=== PATIENT | male | born 1960 | race Hispanic/Latino ===

== ENCOUNTER 2017-06-24 20:18 | Inpatient (IN) | payer OTHER ==
[~2017-06-24] VITALS: Ht 167.6 cm; Wt 76.2 kg
[~2017-06-24 20:18] MED LIST: DOXA2TAB2 PO; FLUC100T8 PO; FOLI1TAB85 PO; LISI-617 PO; TAMS-1 PO
[2017-06-24 20:56] LABS: BASOPHILS % (AUTO) 0.7 % (0.0-5.0); EOSINOPHILS % (AUTO) 2.3 % (0.0-8.0); HEMATOCRIT 29.7 % (42-54); LYMPHOCYTES % (AUTO) 24.4 % (21.0-51.0); MEAN CORPUSCULAR HEMOGLOBIN 30.5 pg (27.0-33.0); MEAN CORPUSCULAR HGB CONC 34.7 g/dL (32.0-36.0); MEAN CORPUSCULAR VOLUME 87.9 fL (79-99); MONOCYTES % (AUTO) 11.3 % (3.0-13.0); NEUTROPHILS % (AUTO) 61.3 % (40.0-77.0); PLATELET COUNT (AUTO) 272 K/uL (130-400); RED BLOOD CELL COUNT(AUTO) 3.38 MIL/uL (4.50-6.20); RED CELL DISTRIBUTION WIDTH 12.6 % (11.0-15.5); WHITE BLOOD COUNT (AUTO) 5.9 K/uL (4.8-10.8)
[2017-06-24 20:58] LABS: APPEARANCE,URINE CLOUDY (CLEAR); BILIRUBIN,URINE NEGATIVE (NEGATIVE); COLOR,URINE YELLOW (YELLOW); GLUCOSE, URINE (UA) >=1000 mg/dL (NEGATIVE); KETONES,URINE NEGATIVE (NEGATIVE); LEUKOCYTE ESTERASE ,URINE LARGE (NEGATIVE); NITRATE,URINE NEGATIVE (NEGATIVE); OCCULT BLOOD,URINE LARGE (NEGATIVE); PROTEIN,URINE 100 (NEGATIVE); UROBILINOGEN,URINE 0.2 mg/dL (0.2-1.0)
[2017-06-24 21:08] LABS: BACTERIA,URINE Rare /HPF (None Seen); WBC,URINE >100 /HPF (0-1); YEAST,URINE BUDDING Moderate /HPF (None Seen)
[2017-06-24 21:10] LABS: SQUAMOUS EPITHELIAL CELL,UR Rare /LPF (0-2)
[2017-06-24 21:17] LABS: INR 0.97 (0.85-1.15); PARTIAL THROMBOPLASTIN TIME 27.1 SEC (26.3-35.5); PROTHROMBIN TIME 10.2 SEC (9.6-11.6)
[2017-06-24 21:33] LABS: ALBUMIN 3.3 g/dL (3.5-5.0); BILIRUBIN,TOTAL 0.4 mg/dL (0.2-1.0); CREATININE 4.9 mg/dL (0.5-1.5); TOTAL PROTEIN, SERUM 8.3 g/dL (6.0-8.3)
[2017-06-24] MEDS ORDERED: MECLIZINE HCL 25 MG TABLET ONE (21:35)
[2017-06-24] MEDS ORDERED: CEFTRIAXONE SODIUM 1 GM ONE (21:35)
[2017-06-24] MEDS ORDERED: SODIUM CHLORIDE 0.9% 500ML 500 ML IV ONE (21:35)
[2017-06-24] MEDS ORDERED: SODIUM CHLORIDE 0.9% 1000ML 1,000 ML IV ONE (22:05)
[2017-06-24] MEDS ORDERED: INSULIN HUMULIN R 100 UNIT/ML 3ML ONE (22:06)
[2017-06-25 01:09] LABS: ABG BASE EXCESS -7.6 mmol/L (-2.0-3.0); ABG HCO3 15.8 mmol/L (21.0-28.0); ABG PCO2 27 mmHg (35-48)
[2017-06-25] MEDS ORDERED: HYDRALAZINE HCL 20 MG/ML VIAL IV PRN (02:30)
[2017-06-25] MEDS ORDERED: ACETAMINOPHEN 325 MG TAB PO PRN ×3 (02:30→07:15)
[2017-06-25] MEDS ORDERED: DEXTROSE 50%-WATER 50 ML DISP.SYRIN IV PRN ×2 (02:30→07:15)
[2017-06-25] MEDS ORDERED: CEFTRIAXONE 1GM/D5W 50ML 50 ML IV SCH (02:30)
[2017-06-25] MEDS ORDERED: MORPHINE SULFATE 2 MG/ML 1ML SYG IVP PRN (02:30)
[2017-06-25] MEDS ORDERED: LACTULOSE 20 GM/30 ML UDCUP PO PRN ×2 (02:30→07:15)
[2017-06-25] MEDS ORDERED: GLUCAGON 1MG KIT 1 MG ML IM PRN ×2 (02:30→07:15)
[2017-06-25] MEDS ORDERED: INSULIN HUMULIN R 100 UNIT/ML 3ML ONE (03:20)
[2017-06-25] MEDS ORDERED: SODIUM CHLORIDE 0.9% 500ML 500 ML IV ONE (03:40)
[2017-06-25 03:44] LABS: BASOPHILS % (AUTO) 0.8 % (0.0-5.0); EOSINOPHILS % (AUTO) 3.2 % (0.0-8.0); LYMPHOCYTES % (AUTO) 21.8 % (21.0-51.0); MEAN CORPUSCULAR HEMOGLOBIN 30.2 pg (27.0-33.0); MEAN CORPUSCULAR HGB CONC 34.9 g/dL (32.0-36.0); MEAN CORPUSCULAR VOLUME 86.6 fL (79-99); MONOCYTES % (AUTO) 11.2 % (3.0-13.0); PLATELET COUNT (AUTO) 244 K/uL (130-400); RED BLOOD CELL COUNT(AUTO) 3.12 MIL/uL (4.50-6.20); RED CELL DISTRIBUTION WIDTH 12.6 % (11.0-15.5); WHITE BLOOD COUNT (AUTO) 5.7 K/uL (4.8-10.8)
[2017-06-25 03:52] LABS: HEMOGLOBIN A1C 12.4 % (4.0-6.0)
[2017-06-25 04:02] LABS: CREATININE 4.3 mg/dL (0.5-1.5); POTASSIUM 3.5 mmol/L (3.5-5.1)
[2017-06-25 05:55] VITALS: BP 154/78
[2017-06-25] MEDS: INSULIN HUMULIN R 100 UNIT/ML 3ML SQ SCH ×4 (06:14→21:02)
[2017-06-25] MEDS: IPRATROPIUM/ALBUTEROL SULFATE 3 ML SOLUTION IH SCH ×4 (06:54→23:15)
[2017-06-25 07:00] VITALS: BP 139/68
[2017-06-25] MEDS ORDERED: LIDOCAINE HCL-MPF 1% 2ML VIAL IJ PRN (07:15)
[2017-06-25] MEDS ORDERED: POTASSIUM CHLORIDE 10% ELIXIR 20 MEQ/15 ML UDCUP PO PRN (07:15)
[2017-06-25] MEDS ORDERED: CLONIDINE HCL 0.1 MG TABLET PO PRN (07:15)
[2017-06-25] MEDS ORDERED: POTASSIUM CHLORIDE 20 MEQ ERTAB PO PRN (07:15)
[2017-06-25] MEDS ORDERED: ZOLPIDEM TARTRATE 5 MG TAB PO PRN (07:15)
[2017-06-25] MEDS ORDERED: INSULIN R PO SSI SQ SCH (07:30)
[2017-06-25] MEDS ORDERED: FAMOTIDINE 20MG TAB 20 MG TAB PO SCH (09:00)
[2017-06-25] MEDS: FAMOTIDINE 20MG TAB 20 MG TAB PO SCH ×2 (09:00→21:03)
[2017-06-25] MEDS: FLU VACC QS2017-18 36MOS UP/PF 60 MCG/0.5 ML ML IM NR (09:04)
[2017-06-25 10:54] VITALS: BP 137/76
[2017-06-25] MEDS ORDERED: INSULIN DETEMIR 10ML 100 UNIT/ML 10ML SQ SCH (11:15)
[2017-06-25] MEDS: SODIUM CHLORIDE 0.9% 1000ML 1,000 ML IV SCH ×2 (12:15→16:08)
[2017-06-25 15:32] VITALS: BP 137/76
[2017-06-25] MEDS: MORPHINE SULFATE 2 MG/ML 1ML SYG IVP PRN (17:35)
[2017-06-25 20:16] VITALS: BP 133/74
[2017-06-25] MEDS ORDERED: RENAL DOSE IV PRN (20:45)
[2017-06-25] MEDS: INSULIN GLARGINE 100 UNITS/ML 10 ML VIAL SQ SCH (21:01)
[2017-06-25] MEDS: CEFTRIAXONE SODIUM 1 GM IVP SCH (21:03)
[2017-06-25] MEDS ORDERED: INSULIN GLARGINE 100 UNITS/ML 10 ML VIAL SQ ONE (21:05)
[2017-06-25] MEDS ORDERED: FLUCONAZOLE 400 MG/NS 200 ML IV SCH (22:00)
[2017-06-25 23:59] VITALS: BP 140/76
[2017-06-26] MEDS: SODIUM CHLORIDE 0.9% 1000ML 1,000 ML IV SCH (03:31)
[2017-06-26 04:00] VITALS: BP 142/79
[2017-06-26 04:37] LABS: BASOPHILS % (AUTO) 0.7 % (0.0-5.0); EOSINOPHILS % (AUTO) 2.1 % (0.0-8.0); HEMATOCRIT 28.4 % (42-54); LYMPHOCYTES % (AUTO) 14.5 % (21.0-51.0); MEAN CORPUSCULAR HEMOGLOBIN 30.1 pg (27.0-33.0); MEAN CORPUSCULAR HGB CONC 35.2 g/dL (32.0-36.0); MEAN CORPUSCULAR VOLUME 85.6 fL (79-99); MONOCYTES % (AUTO) 10.1 % (3.0-13.0); NEUTROPHILS % (AUTO) 72.6 % (40.0-77.0); PLATELET COUNT (AUTO) 276 K/uL (130-400); RED BLOOD CELL COUNT(AUTO) 3.32 MIL/uL (4.50-6.20); RED CELL DISTRIBUTION WIDTH 12.4 % (11.0-15.5); WHITE BLOOD COUNT (AUTO) 7.8 K/uL (4.8-10.8)
[2017-06-26 05:07] LABS: CREATININE 3.5 mg/dL (0.5-1.5); PHOSPHORUS 3.3 mg/dL (2.5-4.9); POTASSIUM 3.5 mmol/L (3.5-5.1); THYROID STIMULATING HORMONE 0.96 uIU/mL (0.36-3.74); URIC ACID 8.2 mg/dL (2.6-7.2)
[2017-06-26] MEDS: IPRATROPIUM/ALBUTEROL SULFATE 3 ML SOLUTION IH SCH (05:42)
[2017-06-26] MEDS: FLU VACC QS2017-18 36MOS UP/PF 60 MCG/0.5 ML ML IM NR (05:54)
[2017-06-26] MEDS: INSULIN HUMULIN R 100 UNIT/ML 3ML SQ SCH ×4 (06:26→20:46)
[2017-06-26 07:00] VITALS: BP 140/73
[2017-06-26] MEDS: INSULIN GLARGINE 100 UNITS/ML 10 ML VIAL SQ SCH ×2 (08:23→21:06)
[2017-06-26] MEDS: FAMOTIDINE 20MG TAB 20 MG TAB PO SCH ×2 (08:24→21:03)
[2017-06-26] MEDS: FOLIC ACID/VITAMIN B COMP W-C 1 MG CAPSULE PO SCH (08:24)
[2017-06-26] MEDS: LINAGLIPTIN 5 MG TABLET PO SCH (08:24)
[2017-06-26] MEDS ORDERED: IPRATROPIUM/ALBUTEROL SULFATE 3 ML SOLUTION IH PRN (11:30)
[2017-06-26 11:36] VITALS: BP 148/79
[2017-06-26] MEDS ORDERED: COMPOUND IV MISC 1 EACH IVSOLN MISC PRN (12:15)
[2017-06-26] MEDS ORDERED: INSULIN HUMULIN R 100 UNIT/ML 3ML SQ ONE (12:46)
[2017-06-26] MEDS: MORPHINE SULFATE 2 MG/ML 1ML SYG IVP PRN ×2 (12:47→21:07)
[2017-06-26] MEDS: IRON SUCROSE COMPLEX 100 MG in SODIUM CHLORIDE 0.9% 50 ML IV SCH (12:48)
[2017-06-26 15:00] VITALS: BP 147/82
[2017-06-26 20:00] VITALS: BP 144/88
[2017-06-26] MEDS: CEFTRIAXONE SODIUM 1 GM IVP SCH (21:02)
[2017-06-26] MEDS: FLUCONAZOLE 200 MG/NS 100 ML 100 ML IV SCH (21:03)
[2017-06-27] VITALS: BP 133/76
[2017-06-27 04:00] VITALS: BP 149/86
[2017-06-27 05:52] LABS: BASOPHILS % (AUTO) 0.4 % (0.0-5.0); EOSINOPHILS % (AUTO) 3.2 % (0.0-8.0); HEMATOCRIT 26.6 % (42-54); LYMPHOCYTES % (AUTO) 17.4 % (21.0-51.0); MEAN CORPUSCULAR HEMOGLOBIN 30.3 pg (27.0-33.0); MEAN CORPUSCULAR HGB CONC 35.2 g/dL (32.0-36.0); MEAN CORPUSCULAR VOLUME 86.1 fL (79-99); MONOCYTES % (AUTO) 9.5 % (3.0-13.0); NEUTROPHILS % (AUTO) 69.5 % (40.0-77.0); PLATELET COUNT (AUTO) 245 K/uL (130-400); RED BLOOD CELL COUNT(AUTO) 3.08 MIL/uL (4.50-6.20); RED CELL DISTRIBUTION WIDTH 12.6 % (11.0-15.5); WHITE BLOOD COUNT (AUTO) 7.3 K/uL (4.8-10.8)
[2017-06-27 06:11] LABS: CREATININE 3.1 mg/dL (0.5-1.5)
[2017-06-27 06:14] LABS: POTASSIUM 2.8 mmol/L (3.5-5.1)
[2017-06-27] MEDS: MORPHINE SULFATE 2 MG/ML 1ML SYG IVP PRN ×2 (06:15→11:42)
[2017-06-27] MEDS: POTASSIUM CHLORIDE 20MEQ/100ML 100 ML IV PRN ×2 (07:25→11:43)
[2017-06-27] MEDS: INSULIN HUMULIN R 100 UNIT/ML 3ML SQ SCH ×4 (07:30→22:30)
[2017-06-27 08:00] VITALS: BP 142/83
[2017-06-27] MEDS: LINAGLIPTIN 5 MG TABLET PO SCH (08:29)
[2017-06-27] MEDS: FAMOTIDINE 20MG TAB 20 MG TAB PO SCH ×2 (08:29→22:19)
[2017-06-27] MEDS: IRON SUCROSE COMPLEX 100 MG in SODIUM CHLORIDE 0.9% 50 ML IV SCH (08:29)
[2017-06-27] MEDS: FOLIC ACID/VITAMIN B COMP W-C 1 MG CAPSULE PO SCH (08:29)
[2017-06-27 11:55] VITALS: BP 148/86
[2017-06-27 16:00] VITALS: BP 143/78
[2017-06-27] MEDS ORDERED: POTASSIUM CHLORIDE 20 MEQ ERTAB PO PRN (18:45)
[2017-06-27 20:00] VITALS: BP 177/88
[2017-06-27] MEDS ORDERED: INSULIN GLARGINE 100 UNITS/ML 10 ML VIAL SQ SCH (21:00)
[2017-06-27] MEDS: FLUCONAZOLE 200 MG/NS 100 ML 100 ML IV SCH (22:19)
[2017-06-27] MEDS: CEFTRIAXONE SODIUM 1 GM IVP SCH (22:19)
[2017-06-28] VITALS: BP 146/90
[2017-06-28 04:00] VITALS: BP 150/81
[2017-06-28 05:35] LABS: HEMATOCRIT 26.4 % (42-54); MEAN CORPUSCULAR HEMOGLOBIN 31.2 pg (27.0-33.0); MEAN CORPUSCULAR HGB CONC 35.9 g/dL (32.0-36.0); MEAN CORPUSCULAR VOLUME 86.7 fL (79-99); NUCLEATED RED BLOOD CELLS 0.1 % (0.0-0.19); PLATELET COUNT (AUTO) 255 K/uL (130-400); RED BLOOD CELL COUNT(AUTO) 3.05 MIL/uL (4.50-6.20); RED CELL DISTRIBUTION WIDTH 12.6 % (11.0-15.5); WHITE BLOOD COUNT (AUTO) 9.9 K/uL (4.8-10.8)
[2017-06-28 05:46] LABS: MAGNESIUM 1.8 mg/dL (1.80-2.40); POTASSIUM 3.5 mmol/L (3.5-5.1)
[2017-06-28 05:48] LABS: BAND NEUTROPHILS % (MANUAL) 13 % (0-2); BASOPHILS % (MANUAL) 1 % (0-2); LYMPHOCYTES % (MANUAL) 16 % (22-44); MAN.DIFF COMMENT-IMPRESSION MANUAL DIFFERENTIAL; MONOCYTES % (MANUAL) 9 % (2-9); PLATELET MORPHOLOGY COMMENT ADEQUATE; SEGMENTED NEUTROPHILS % 61 % (40-70)
[2017-06-28 08:00] VITALS: BP 173/95
[2017-06-28] MEDS: LINAGLIPTIN 5 MG TABLET PO SCH (08:21)
[2017-06-28] MEDS: FAMOTIDINE 20MG TAB 20 MG TAB PO SCH (08:21)
[2017-06-28] MEDS: IRON SUCROSE COMPLEX 100 MG in SODIUM CHLORIDE 0.9% 50 ML IV SCH (08:22)
[2017-06-28] MEDS: FOLIC ACID/VITAMIN B COMP W-C 1 MG CAPSULE PO SCH (08:23)
[2017-06-28] MEDS: MORPHINE SULFATE 2 MG/ML 1ML SYG IVP PRN (08:24)
[2017-06-28] MEDS: INSULIN HUMULIN R 100 UNIT/ML 3ML SQ SCH (11:30)
[2017-06-28 11:52] VITALS: BP 132/83
[2017-06-28] MEDS ORDERED: INSLAN SQ (12:05)
[2017-06-28] MEDS ORDERED: LINA5TAB PO (12:05)
[2017-06-28] MEDS ORDERED: FLUC100T8 PO (12:06)
== END 2017-06-28 17:34 | disposition home or self-care (01) | DRG 683 ==
LOC: EDH 20:18 → OBSVTOIN 20:19 → EDHIP 20:19 → 4AH 06-25 05:04 → 4CH 06-26 21:11
PROVIDERS: ADMIT Internal Medicine; ATTEND Internal Medicine
DX: N17.9 Acute kidney failure, unspecified (principal); N39.0 Urinary tract infection, site not specified; E11.21 Type 2 diabetes mellitus with diabetic nephropathy; E11.51 Type 2 diabetes mellitus with diabetic peripheral angiopathy without gangrene; E87.1 Hypo-osmolality and hyponatremia; N13.30 Unspecified hydronephrosis; E11.65 Type 2 diabetes mellitus with hyperglycemia; N18.9 Chronic kidney disease, unspecified; D64.9 Anemia, unspecified; E78.5 Hyperlipidemia, unspecified; E11.22 Type 2 diabetes mellitus with diabetic chronic kidney disease; E86.0 Dehydration; E87.8 Other disorders of electrolyte and fluid balance, not elsewhere classified; F17.200 Nicotine dependence, unspecified, uncomplicated; I12.9 Hypertensive chronic kidney disease with stage 1 through stage 4 chronic kidney disease, or unspecified chronic kidney disease; J44.9 Chronic obstructive pulmonary disease, unspecified; N32.9 Bladder disorder, unspecified; N40.0 Benign prostatic hyperplasia without lower urinary tract symptoms; Z79.4 Long term (current) use of insulin; Z91.19 Patient's noncompliance with other medical treatment and regimen
CPT/HCPCS: 36415; 36600; 71045; 74176; 76770; 80048; 80053; 81001; 82009; 82330; 82435; 82728; 82803; 82947; 82948; 83036; 83540; 83550; 83605; 83735; 84100; 84132; 84295; 84443; 84484; 84550; 85018; 85025; 85610; 85730; 87088; 87186; 93005; 94640; 94664; A4218; A4344; J0360; J0696; J1450; J1756; J1815; J3480; J7030; J7040; Q2038

== ENCOUNTER 2018-12-10 11:31 | Emergency (ER) | payer MEDICAID ==
[~2018-12-10 11:31] MED LIST changes: +INSLAN SQ; +LINA5TAB PO; -LISI-617 PO
[2018-12-10] MEDS ORDERED: NITROGLYCERIN 1GM/1 INCH PACKET TD ONE (12:09)
[2018-12-10 12:56] LABS: EOSINOPHILS % (AUTO) 3.7 % (0.0-8.0); LYMPHOCYTES % (AUTO) 18.6 % (21.0-51.0); MEAN CORPUSCULAR VOLUME 88.1 fL (79-99); MONOCYTES % (AUTO) 7.5 % (3.0-13.0); NEUTROPHILS % (AUTO) 69.2 % (40.0-77.0); PLATELET COUNT (AUTO) 169 K/uL (130-400); RED BLOOD CELL COUNT(AUTO) 3.07 MIL/uL (4.50-6.20); WHITE BLOOD COUNT (AUTO) 4.4 K/uL (4.8-10.8)
[2018-12-10 13:07] LABS: B-TYPE NATRIURETIC PEPTIDE 665 pg/mL (0-100); INR 1.03 (0.85-1.15); PARTIAL THROMBOPLASTIN TIME 29.4 SEC (26.3-35.5); PROTHROMBIN TIME 10.8 SEC (9.6-11.6)
[2018-12-10 13:13] LABS: CREATININE 4.9 mg/dL (0.5-1.5); POTASSIUM 4.3 mmol/L (3.5-5.1)
[2018-12-10 13:18] LABS: ALBUMIN 3.6 g/dL (3.5-5.0); BILIRUBIN,TOTAL 0.5 mg/dL (0.2-1.0); TOTAL PROTEIN, SERUM 7.2 g/dL (6.0-8.3)
[2018-12-10] MEDS ORDERED: FUROSEMIDE 10 MG/ML 4ML VIAL ONE (14:12)
== END 2018-12-10 16:25 | disposition home or self-care (01) ==
LOC: EDH 11:31
DX: I12.9 Hypertensive chronic kidney disease with stage 1 through stage 4 chronic kidney disease, or unspecified chronic kidney disease (principal); E11.22 Type 2 diabetes mellitus with diabetic chronic kidney disease; N18.9 Chronic kidney disease, unspecified; E87.70 Fluid overload, unspecified; Z72.0 Tobacco use
CPT/HCPCS: 36415; 71045; 80053; 82550; 83880; 84484 ×2; 85025; 85610; 85730; 93005 ×2; 93970; 96374; 99285; J1940

== ENCOUNTER → 2019-02-12 | Outpatient (CLI) | payer MEDICAID | END | disposition home or self-care (01) | LOC: SHCH 13:10 | PROVIDERS: ATTEND Internal Medicine Cardiovascular Disease | DX: R06.00 Dyspnea, unspecified (principal); I10 Essential (primary) hypertension | CPT/HCPCS: 93306 ==

== ENCOUNTER → 2019-02-19 | Outpatient (CLI) | payer MEDICAID ==
[~2019-02-19] VITALS: Ht 167.6 cm; Wt 83.0 kg
[~2019-02-19] MED LIST changes: +REGADENOSON 0.4 MG/5 ML PF SYG IVP SCH
== END | disposition home or self-care (01) ==
LOC: SHCH 08:13
PROVIDERS: ATTEND Internal Medicine Cardiovascular Disease
DX: R06.00 Dyspnea, unspecified (principal); I10 Essential (primary) hypertension
CPT/HCPCS: 78452; 93017; 96374; A9500 ×2; J2785

== ENCOUNTER 2019-12-01 12:46 | Inpatient (IN) | payer MEDICAID ==
[~2019-12-01] VITALS: Ht 167.6 cm; Wt 75.8 kg
[2019-12-01] MEDS ORDERED: SODIUM BICARB 50MEQ 50ML VIAL ONE (14:26)
[2019-12-01] MEDS ORDERED: ACETAMINOPHEN 325 MG TAB PO PRN (17:15)
[2019-12-01] MEDS ORDERED: ONDANSETRON HCL 4 MG/2 ML VIAL IVP PRN (17:15)
[2019-12-02] MEDS ORDERED: PANTOPRAZOLE SODIUM 40 MG TABLET.DR PO SCH (09:00)
== END 2019-12-01 17:14 | disposition left against medical advice (07) | DRG 425 ==
LOC: EDH 12:46 → EDHIP 12:47
PROVIDERS: ADMIT Internal Medicine Nephrology; ATTEND Internal Medicine Nephrology
DX: E87.70 Fluid overload, unspecified (principal); E87.2 Acidosis; I12.0 Hypertensive chronic kidney disease with stage 5 chronic kidney disease or end stage renal disease; N13.30 Unspecified hydronephrosis; E11.22 Type 2 diabetes mellitus with diabetic chronic kidney disease; D64.9 Anemia, unspecified; E11.51 Type 2 diabetes mellitus with diabetic peripheral angiopathy without gangrene; N18.6 End stage renal disease; E78.5 Hyperlipidemia, unspecified; J44.9 Chronic obstructive pulmonary disease, unspecified; N18.9 Chronic kidney disease, unspecified; Z53.29 Procedure and treatment not carried out because of patient's decision for other reasons; F17.200 Nicotine dependence, unspecified, uncomplicated; Z91.15 Patient's noncompliance with renal dialysis; Z91.19 Patient's noncompliance with other medical treatment and regimen; Z87.440 Personal history of urinary (tract) infections

== ENCOUNTER 2019-12-04 17:09 | Inpatient (IN) | payer MEDICAID ==
[~2019-12-04] VITALS: Ht 167.6 cm; Wt 69.0 kg
[2019-12-04] MEDS ORDERED: POTASSIUM CHLORIDE 20 MEQ ERTAB PO SCH (20:15)
[2019-12-04] MEDS: AZITHROMYCIN 500MG+NS 250ML 250 ML IV SCH (20:30)
[2019-12-04] MEDS ORDERED: ACETAMINOPHEN 325 MG TAB PO PRN ×2 (20:30)
[2019-12-04] MEDS ORDERED: ALBUTEROL INHALER 90MCG/INH IH PRN (20:30)
[2019-12-04] MEDS ORDERED: CEFTRIAXONE SODIUM 1 GM IV SCH (20:30)
[2019-12-04] MEDS ORDERED: DIPHENHYDRAMINE HCL 25 MG CAPSULE PO PRN (20:30)
[2019-12-04] MEDS ORDERED: DEXTROSE 50%-WATER 50 ML DISP.SYRIN IV PRN (20:30)
[2019-12-04] MEDS ORDERED: GLUCAGON 1MG KIT 1 MG ML IM PRN (20:30)
[2019-12-04] MEDS ORDERED: NITROGLYCERIN 0.4 MG SL TAB SL PRN (20:30)
[2019-12-04] MEDS: HEPARIN SODIUM 5000UNIT/ML 1ML VIAL SQ SCH (21:00)
[2019-12-04] MEDS: INSULIN HUMULIN R 100 UNIT/ML 3ML SQ SCH (21:00)
[2019-12-04] MEDS ORDERED: POTASSIUM CHLORIDE 20 MEQ ERTAB PO ONE (22:06)
[2019-12-04] MEDS ORDERED: AZITHROMYCIN 500MG+NS 250ML 250 ML IV ONE (22:07)
[2019-12-04] MEDS ORDERED: HEPARIN SODIUM 5000UNIT/ML 1ML VIAL ONE (22:07)
[2019-12-04] MEDS ORDERED: CEFTRIAXONE SODIUM 1 GM ONE (22:07)
[2019-12-04] MEDS ORDERED: DiphenhydrAMINE HCL 50 MG/ML VIAL ONE (23:45)
[2019-12-05] MEDS ORDERED: ALPRAZOLAM 0.25 MG TABLET ONE (00:18)
[2019-12-05] MEDS ORDERED: HEPARIN SODIUM 5000UNIT/ML 1ML VIAL ONE (06:30)
[2019-12-05] MEDS: INSULIN HUMULIN R 100 UNIT/ML 3ML SQ SCH ×4 (07:30→20:35)
[2019-12-05] MEDS ORDERED: LIDOCAINE HCL 1% MDV 50ML VIAL ONE (09:21)
--- NOTE | 2019-12-05 10:41 | NUR ---
FELIZ PLACEMENT TIME OUT PERFORMED. DR HARDY PLACED A 15 CM FELIZ TO CTJ. SEE MD NOTES. CATHETER FLUSHED WITH HEPARIN 1000 UNITS AND [address]ED IN [address]ACE. AREA COVERED WITH TEGADERM. NO OOZING, HEMATOMA, OR BRUISING NOTED. HAND OFF REPORT GIVEN TO REBEL ELKINS.
[2019-12-05] MEDS: HEPARIN SODIUM 5000UNIT/ML 1ML VIAL SQ SCH ×3 (10:50→19:42)
[2019-12-05] MEDS: PANTOPRAZOLE SODIUM 40 MG TABLET.DR PO SCH (10:50)
[2019-12-05 11:23] VITALS: BP 162/87; PULSE 78; RESP 20; TEMP 96.9
--- NOTE | 2019-12-05 14:50 | NUR ---
DR. THOMAS PAGED; OKAY TO DO HD AFTER FELIZ PLACEMENT.
--- NOTE | 2019-12-05 15:10 | NUR ---
DCP: HOME Sw spoke to pt's daughter who reports that she believes pt is living with someone, "a woman", but not sure. Pt has been from legal Sharyn Koch [id number] for 10yrs and has refused to divorce . SW educated daughter on Surrogate Decision [employer] Law should pt become unable to make decisions for self. Daughter voiced understanding. Pt is on SSD, uses a cane and has no in home care services. Daughter reports they have told pt to he would need dialysis a some point. PCP is [facility] Valdivia. [place] Addendum: 12/05/19 at 1515 by APARNA ALEXANDER Amended: Links added.
[2019-12-05 16:00] VITALS: BP 162/77; PULSE 88; RESP 17
--- NOTE | 2019-12-05 17:32 | NUR ---
PATIENT BEING DIALYZED
[2019-12-05 17:44] VITALS: TEMP 98
[2019-12-05 19:30] VITALS: BP 136/66; PULSE 107; RESP 18; TEMP 99.3
[2019-12-05] MEDS: AZITHROMYCIN 500MG+NS 250ML 250 ML IV SCH (20:42)
[2019-12-05] MEDS ORDERED: PNEUMOCOCCAL VACCINE POLYVALENT 0.5 ML/VIAL [PPV] IM SCH (21:00)
[2019-12-06] VITALS (7 sets, daily range): BP systolic 108–142; BP diastolic 32–79; PULSE 93–103; RESP 16–24; TEMP 98.4–99
[2019-12-06] MEDS: POTASSIUM CHLORIDE 10 MEQ/TAB.SA PO SCH (05:34)
[2019-12-06] MEDS: INSULIN HUMULIN R 100 UNIT/ML 3ML SQ SCH ×4 (05:44→21:00)
[2019-12-06] MEDS: PANTOPRAZOLE SODIUM 40 MG TABLET.DR PO SCH (08:42)
[2019-12-06] MEDS: HEPARIN SODIUM 5000UNIT/ML 1ML VIAL SQ SCH ×3 (08:43→21:28)
[2019-12-06] MEDS ORDERED: BENZONATATE 100 MG CAPSULE PO PRN (12:30)
[2019-12-06] MEDS: METHYLPREDNISOLONE SOD SUCC 40MG/ML 1ML IVP SCH ×2 (14:08→21:24)
[2019-12-06] MEDS: CEFTRIAXONE SODIUM 1 GM IVP SCH (14:08)
[2019-12-06] MEDS ORDERED: COMPOUND IV MISC 1 EACH IVSOLN MISC PRN (17:15)
[2019-12-06] MEDS ORDERED: EPOETIN ALFA 10,000 UNIT/ML VIAL SQ SCH (17:30)
[2019-12-06] MEDS: IRON SUCROSE COMPLEX 100 MG in SODIUM CHLORIDE 0.9% 50 ML IV SCH (17:43)
[2019-12-06] MEDS ORDERED: POTASSIUM CHLORIDE 10MEQ/100ML 10 MEQ/100 ML ML IV STA ×2 (20:55→21:11)
[2019-12-06] MEDS: AZITHROMYCIN 500MG+NS 250ML 250 ML IV SCH (21:24)
[2019-12-06] MEDS ORDERED: POTASSIUM CHLORIDE 10MEQ/100ML 100 ML IV ONE (21:30)
[2019-12-06] MEDS: ONDANSETRON HCL 4 MG/2 ML VIAL IV PRN (22:47)
[2019-12-07] MEDS: CEFTRIAXONE SODIUM 1 GM IVP SCH ×3 (00:15→23:33)
[2019-12-07 03:05] VITALS: BP 142/58; PULSE 85; RESP 16; TEMP 98.6
[2019-12-07] MEDS: INSULIN HUMULIN R 100 UNIT/ML 3ML SQ SCH ×4 (05:21→21:47)
[2019-12-07] MEDS: POTASSIUM CHLORIDE 10 MEQ/TAB.SA PO SCH (06:06)
[2019-12-07 08:00] VITALS: BP 122/77; PULSE 90; RESP 14; TEMP 97.9
--- NOTE | 2019-12-07 08:30 | NUR ---
AM ASSESSMENT PT AWAKE AND ALERT, DENIES CHEST PAIN, DENIES SOB OR LABORED RESPIRATIONS. PT HAVING DIALYSIS TREATMENT AT THIS TIME.
[2019-12-07 12:00] VITALS: BP 134/75; PULSE 77; RESP 17; TEMP 98
[2019-12-07] MEDS: METHYLPREDNISOLONE SOD SUCC 40MG/ML 1ML IVP SCH ×3 (13:11→21:46)
[2019-12-07] MEDS: PANTOPRAZOLE SODIUM 40 MG TABLET.DR PO SCH (13:12)
[2019-12-07] MEDS: HEPARIN SODIUM 5000UNIT/ML 1ML VIAL SQ SCH ×3 (13:13→21:47)
[2019-12-07] MEDS: PHARMACY COMMUNICATION MISC SCH ×2 (15:30→23:30)
[2019-12-07 16:00] VITALS: BP 142/72; PULSE 84; RESP 17; TEMP 98.4
[2019-12-07] MEDS: IRON SUCROSE COMPLEX 100 MG in SODIUM CHLORIDE 0.9% 50 ML IV SCH (17:37)
[2019-12-07 20:41] VITALS: BP 140/81; PULSE 90; RESP 18; TEMP 97.6
[2019-12-07] MEDS: AZITHROMYCIN 500MG+NS 250ML 250 ML IV SCH (21:46)
[2019-12-07] MEDS: ONDANSETRON HCL 4 MG/2 ML VIAL IV PRN (23:34)
[2019-12-07 23:51] VITALS: BP 130/73; PULSE 90; RESP 18; TEMP 98.5
[2019-12-08 03:45] VITALS: BP 161/81; PULSE 80; RESP 17; TEMP 98.2
[2019-12-08] MEDS: POTASSIUM CHLORIDE 10 MEQ/TAB.SA PO SCH (05:30)
[2019-12-08] MEDS: INSULIN HUMULIN R 100 UNIT/ML 3ML SQ SCH ×4 (06:39→21:49)
[2019-12-08] MEDS: PANTOPRAZOLE SODIUM 40 MG TABLET.DR PO SCH (08:41)
[2019-12-08] MEDS: METHYLPREDNISOLONE SOD SUCC 40MG/ML 1ML IVP SCH ×3 (08:41→21:48)
[2019-12-08 08:42] VITALS: BP 139/82; PULSE 70; RESP 18; TEMP 97.6
[2019-12-08] MEDS: HEPARIN SODIUM 5000UNIT/ML 1ML VIAL SQ SCH ×2 (08:52→21:49)
[2019-12-08] MEDS: PHARMACY COMMUNICATION MISC SCH ×3 (11:48→21:50)
[2019-12-08] MEDS: CEFTRIAXONE SODIUM 1 GM IVP SCH (11:59)
[2019-12-08 12:46] VITALS: BP 152/88; PULSE 78; RESP 18; TEMP 97.4
--- NOTE | 2019-12-08 14:48 | NUR ---
DR. Jaclyn TIMMONS IN ROOM SPEAKING WITH PT. AND ADDRESS PT.'S QUESTIONS. PT. EXPRESSED POSSIBLY LEAVING AMA, DR. TIMMONS SPOKE WITH PT. AND PT. DECIDED TO STAY.
[2019-12-08] MEDS ORDERED: RENAL DOSE IV SCH (15:00)
[2019-12-08 16:33] VITALS: BP 128/77; PULSE 84; RESP 18; TEMP 97.7
[2019-12-08 20:14] VITALS: BP 159/92; PULSE 76; RESP 18; TEMP 97.8
[2019-12-08] MEDS: AZITHROMYCIN 500MG+NS 250ML 250 ML IV SCH (21:48)
[2019-12-08 23:44] VITALS: BP 153/85; PULSE 84; RESP 18; TEMP 97.8
[2019-12-09] MEDS: CEFTRIAXONE SODIUM 1 GM IVP SCH ×3 (00:33→23:18)
[2019-12-09 03:52] VITALS: BP 165/96; PULSE 84; RESP 18; TEMP 97.7
[2019-12-09] MEDS: HEPARIN SODIUM 5000UNIT/ML 1ML VIAL SQ SCH ×3 (06:34→20:11)
[2019-12-09] MEDS: INSULIN HUMULIN R 100 UNIT/ML 3ML SQ SCH ×4 (06:34→20:55)
[2019-12-09 08:00] VITALS: BP 148/85; PULSE 84; RESP 18; TEMP 97.6
--- NOTE | 2019-12-09 08:20 | NUR ---
RESTING IN BED IN LEFT SIDE-LYING POSITION WITH EYES CLOSED, RESP.'S EVEN AND UNLABORED. PT. AWOKE FROM SLEEP. ORIENTED X3. DENIES ANY SOB, DENIES ANY CURRENT PAIN. SAT UPRIGHT IN BED FOR BREAKFAST. CALL LIGHT WITHIN REACH, VERBALIZED ABILITY TO USE. BED LOW, SIDE RAILS UP X2.
[2019-12-09] MEDS: PANTOPRAZOLE SODIUM 40 MG TABLET.DR PO SCH (08:25)
[2019-12-09] MEDS: METHYLPREDNISOLONE SOD SUCC 40MG/ML 1ML IVP SCH ×3 (08:25→20:12)
[2019-12-09] MEDS ORDERED: POTASSIUM CHLORIDE 20 MEQ ERTAB PO SCH (09:00)
[2019-12-09] MEDS ORDERED: POTASSIUM CHLORIDE 20 MEQ ERTAB PO ONE (09:45)
[2019-12-09 12:00] VITALS: BP 154/85; PULSE 78; RESP 18; TEMP 97.5
--- NOTE | 2019-12-09 13:05 | NUR ---
DR. JAMES IN ROOM SPEAKING WITH PT. RE:PLAN OF CARE AND NEED TO EXCHANGE HD CATHETER, PT. VERBALIZED UNDERSTANDING.
[2019-12-09 16:00] VITALS: BP 145/83; PULSE 79; RESP 18; TEMP 97.4
[2019-12-09 20:00] VITALS: BP 151/85; PULSE 85; RESP 18; TEMP 975
[2019-12-09] MEDS: AZITHROMYCIN 500MG+NS 250ML 250 ML IV SCH (20:09)
[2019-12-09] MEDS ORDERED: METHYLPREDNISOLONE SOD SUCC 125MG/2ML VIAL IVP ONE (21:00)
[2019-12-09] MEDS ORDERED: INSULIN HUMULIN R 100 UNIT/ML 3ML SQ SCH (22:45)
[2019-12-09] MEDS: INSULIN GLARGINE 100 UNITS/ML 10 ML VIAL SQ SCH (23:20)
[2019-12-10] VITALS (15 sets, daily range): BP systolic 118–167; BP diastolic 57–107; PULSE 79–172; RESP 18–22; TEMP 97.7–97.9
[2019-12-10] MEDS: INSULIN HUMULIN R 100 UNIT/ML 3ML SQ SCH ×4 (05:19→20:53)
[2019-12-10] MEDS: HEPARIN SODIUM 5000UNIT/ML 1ML VIAL SQ SCH ×3 (05:45→20:53)
[2019-12-10] MEDS: INSULIN GLARGINE 100 UNITS/ML 10 ML VIAL SQ SCH ×2 (05:46→20:52)
[2019-12-10] MEDS: PANTOPRAZOLE SODIUM 40 MG TABLET.DR PO SCH (09:00)
[2019-12-10] MEDS: METHYLPREDNISOLONE SOD SUCC 40MG/ML 1ML IVP SCH ×3 (09:00→20:45)
[2019-12-10] MEDS ORDERED: 0.9% SODIUM CHLORIDE 1000 ML IV BAG IV PRN (11:00)
[2019-12-10] MEDS ORDERED: HEPARIN SODIUM 5000UNIT/ML 1ML VIAL IJ PRN ×2 (11:00)
[2019-12-10] MEDS ORDERED: ACETAMINOPHEN 325 MG TAB PO PRN (11:00)
[2019-12-10] MEDS ORDERED: LIDOCAINE HCL-MPF 1% 2ML VIAL IJ PRN (11:00)
[2019-12-10] MEDS ORDERED: SODIUM CHLORIDE 0.9% 1000ML 1,000 ML IV PRN (11:00)
[2019-12-10] MEDS ORDERED: NITROGLYCERIN 0.4 MG SL TAB SL PRN (11:00)
[2019-12-10] MEDS ORDERED: IODIXANOL 320 MG/ML 100 ML VIAL ONE (11:24)
[2019-12-10] MEDS ORDERED: LIDOCAINE HCL 1% MDV 50ML VIAL ONE (11:24)
--- NOTE | 2019-12-10 11:36 | NUR ---
TO RACK PUNCHER VIA BED ACCOMPANIED BY Jaclyn LEVI RN.
--- NOTE | 2019-12-10 12:50 | NUR ---
RETURNED TO ROOM VIA BED ACCOMPANIED BY Bashir MELARA, RN AND Jaclyn LEVI, RN. PT. AAOX3. RESP.'S EVEN AND UNLABORED. DENIES ANY C/O SOB, DENIES ANY CURRENT PAIN. RIGHT NECK AREA WITH LIGHT DRSG IN PLACE, D/I. RIGHT UPPER CHEST WITH HD CATHETER IN PLACE, DRSG D/I. O2 SAT. PER SPOT CHECK ON ROOM AIR, 85-88%. PLACED ON 2L/NC, INCREASED TO 93%. INSTRUCTED PT. TO KEEP O2 IN PLACE, VERBALIZED UNDERSTANDING. ALSO INSTRUCTED PT. ON BR X4 HRS PER MD ORDERS, VERBALIZED UNDERSTANDING. BED LOW, SIDE RAILS UP X2. CALL LIGHT WITHIN REACH, VERBALIZED ABILITY TO USE. BED LOW, SIDE RAILS UP X3.
[2019-12-10] MEDS: CEFTRIAXONE SODIUM 1 GM IVP SCH (13:01)
--- NOTE | 2019-12-10 13:25 | NUR ---
CM NOTE/[facility] UNABLE TO VISIT PATIENT D/T IN RESTRICTIVE COVIT UNIT. CALLED DAUGHTER, TAWANNA SOMMERS, JERROD COMPLETED FOR [facility]. CLINICAL PACKET FAXED TO [facility]. NURSE, DEAN ELKINS, TO FAX ME ALL DIALYSIS SHEETS, PERMACATH REPORT AND COVID RESULTED LABWORK. ALSO PENDING HIV LABWORK RESULTS. ALL THESE WILL BE FAXED TO [facility] WHEN AVAILABLE. CM TO FOLLOW UP ACCORDINGLY.
[2019-12-10] MEDS ORDERED: POTASSIUM CHLORIDE 20 MEQ ERTAB PO SCH (14:45)
--- NOTE | 2019-12-10 14:55 | NUR ---
AMARILIS NOTE/[facility] FAXED ALL 3 DIALYSIS HEMODIALYSIS SHEETS, COVID LABWORK RESULT, AND PERMACATH REPORT. [facility] MAIN INTAKE CALLED TO SEE IF REFERRAL RECEIVED, SPOKE WITH GWEN. PER GWEN, HAD AN INFLUX OF NEW DIALYSIS REFERRALS AND WILL GO THRU FAXES. AMARILIS TO FOLLOW UP ACCORDINGLY.
--- NOTE | 2019-12-10 16:19 | NUR ---
RD NOTIFICATION Pt admitted with positive COVID-19, CKD V. Pt with Dialysis, 75gm CC, Heart Healthy diet order in place. Tolerating current diet order with no report of GI distress, Good PO intake at 100%. Pt s/p hemodialysis x3. Recommend continue diet order. Recommend 500mg Vitamin C (BID), 220mg ZnSO4(QD). RD to continue to monitor. Please notify RD as additional nutrition concerns arise. Thank you.
[2019-12-10] MEDS: EPOETIN ALFA 10,000 UNIT/ML VIAL IV SCH (20:46)
[2019-12-10] MEDS: AZITHROMYCIN 500MG+NS 250ML 250 ML IV SCH (20:46)
[2019-12-11] VITALS (7 sets, daily range): BP systolic 137–165; BP diastolic 73–98; PULSE 73–90; RESP 18–22; TEMP 97–98.6
[2019-12-11] MEDS: CEFTRIAXONE SODIUM 1 GM IVP SCH ×2 (01:15→13:04)
[2019-12-11] MEDS: HEPARIN SODIUM 5000UNIT/ML 1ML VIAL SQ SCH ×3 (04:19→20:23)
[2019-12-11] MEDS: INSULIN GLARGINE 100 UNITS/ML 10 ML VIAL SQ SCH ×2 (05:44→20:24)
[2019-12-11] MEDS: INSULIN HUMULIN R 100 UNIT/ML 3ML SQ SCH ×4 (05:44→21:20)
[2019-12-11] MEDS: PANTOPRAZOLE SODIUM 40 MG TABLET.DR PO SCH (08:28)
[2019-12-11] MEDS: METHYLPREDNISOLONE SOD SUCC 40MG/ML 1ML IVP SCH ×3 (08:29→20:21)
--- NOTE | 2019-12-11 09:00 | NUR ---
CM NOTE/[facility] PROCESSING PER TRISTAN AT [facility] INTAKE, CLINICAL PACKET UNDER PROCESS. PER TRISTAN, HOME DIALYSIS CLINIC WILL BE [facility] ON [address] [facility] UNDER PROCESS AND WILL CALL ME AND LET ME KNOW. DEAN ELKINS, PRIMARY NURSE, MADE AWARE.
--- NOTE | 2019-12-11 15:30 | NUR ---
CM NOTE/[facility] PENDING HEP B ANTIBODY/CORE TOTAL PER ALEXIA AT [facility], HEP PANEL SENT BUT PENDING HEP B ANTIBODY AND TOTAL CORE. NOTED LABWORK MISSING, ORDERS OBTAINED FROM DR. JAMES FOR [facility], PENDING LABWORK DRAW AND RESULTS. DEAN ELKINS, PRIMARY NURSE, AWARE.
[2019-12-11] MEDS: AZITHROMYCIN 500MG+NS 250ML 250 ML IV SCH (20:21)
[2019-12-12] VITALS (8 sets, daily range): BP systolic 114–187; BP diastolic 71–109; PULSE 80–100; RESP 17–18; TEMP 97.5–98.2
[2019-12-12] MEDS: CEFTRIAXONE SODIUM 1 GM IVP SCH ×2 (01:11→14:05)
[2019-12-12] MEDS: HEPARIN SODIUM 5000UNIT/ML 1ML VIAL SQ SCH ×3 (04:16→21:03)
[2019-12-12] MEDS: INSULIN HUMULIN R 100 UNIT/ML 3ML SQ SCH ×4 (05:59→21:03)
[2019-12-12] MEDS: INSULIN GLARGINE 100 UNITS/ML 10 ML VIAL SQ SCH ×2 (06:04→21:04)
[2019-12-12] MEDS: METHYLPREDNISOLONE SOD SUCC 40MG/ML 1ML IVP SCH ×3 (09:00→21:02)
--- NOTE | 2019-12-12 12:22 | NUR ---
CM NOTE/[facility] HEP B TOTAL CORE AND ANTIBODY THAT WAS PENDING RECEIVED AND FAXED TO [facility]YS[facility] MAIN INTAKE OFFICE. CALL PLACED TO [facility] EXT [phone]. [facility] AND WILL BE REVIEWED. TENTATIVE CHAIR AND TIME IN THE MEAN TIME BUT WILL CALL ME BACK WITH APPT DATE/TIME. CM TO FOLLOW UP. GUERRERO ELKINS, MADE AWARE PENDING APPT.
[2019-12-12] MEDS: PANTOPRAZOLE SODIUM 40 MG TABLET.DR PO SCH (14:05)
--- NOTE | 2019-12-12 15:21 | NUR ---
CM NOTE/[facility] CANCELLED REFERRAL TO [facility] CALL FROM DR. JAMES STATING PATIENT SHOULD BE REFERRED TO [facility]. PER PATIENT, OK WITH [facility]. PATIENT AWARE OF DC DELAY BECAUSE WE HAVE TO WAIT FOR [facility] TO PROCESS REFERRAL. JERROD COMPLETED FOR [facility]. CALLED [facility], SPOKE WITH [facility] REFERRAL CANCELLED. REFERRAL FAXED TO [facility] INTAKE OFFICE, CM TO FOLLOW UP FOR DIALYSIS CHAIR DATE/TIME.
[2019-12-12] MEDS: EPOETIN ALFA 10,000 UNIT/ML VIAL IV SCH (21:01)
[2019-12-12] MEDS: AZITHROMYCIN 500MG+NS 250ML 250 ML IV SCH (21:01)
[2019-12-13 04:50] VITALS: BP 168/91; PULSE 80; RESP 17; TEMP 97.9
[2019-12-13] MEDS: HEPARIN SODIUM 5000UNIT/ML 1ML VIAL SQ SCH ×3 (05:27→20:35)
[2019-12-13] MEDS: CEFTRIAXONE SODIUM 1 GM IVP SCH (06:00)
[2019-12-13] MEDS: INSULIN HUMULIN R 100 UNIT/ML 3ML SQ SCH ×4 (06:53→20:35)
[2019-12-13] MEDS: INSULIN GLARGINE 100 UNITS/ML 10 ML VIAL SQ SCH ×2 (06:54→20:37)
[2019-12-13] MEDS: METHYLPREDNISOLONE SOD SUCC 40MG/ML 1ML IVP SCH (08:23)
[2019-12-13] MEDS: PANTOPRAZOLE SODIUM 40 MG TABLET.DR PO SCH (08:23)
[2019-12-13 08:45] VITALS: BP 154/87; PULSE 83; RESP 18; TEMP 97.9
--- NOTE | 2019-12-13 08:45 | NUR ---
ASSESSMENT ENCOUNTERED PT A&OX3, CALM COOPERATIVE AND DOES NOT APPEAR TO BE IN ANY DISTRESS NOR ANY NEURO DEFICITS PRESENT. PT DENIES PAIN, SOB, NAUSEA. PT IS AMBULATORY, GAIT STEADY AND STRONG WITH STAND BY ASSIST. PERMACATH TO [facility], SITE DRY AND INTACT. CALL LIGHT WITHIN REACH.
--- NOTE | 2019-12-13 09:20 | NUR ---
CM NOTE/[facility] PER DANDY AT [facility], REFERRAL RECEIVED YESTERDAY AND IN PROCESS. CM TO FOLLOW UP ACCORDINGLY.
[2019-12-13 12:00] VITALS: BP 148/96; PULSE 84; RESP 20; TEMP 97.8
[2019-12-13] MEDS: DEXAMETHASONE 4 MG TAB PO SCH ×3 (14:00→20:38)
[2019-12-13 16:00] VITALS: BP 167/101; PULSE 81; RESP 18; TEMP 97.6
[2019-12-13 19:50] VITALS: BP 147/98; PULSE 83; RESP 18; TEMP 97.9
[2019-12-13] MEDS ORDERED: AMLODIPINE BESYLATE 5 MG TAB PO SCH (21:00)
[2019-12-13 23:24] VITALS: BP 143/86; PULSE 89; RESP 17; TEMP 97.9
[2019-12-14 03:50] VITALS: BP 159/92; PULSE 93; RESP 18; TEMP 97.9
[2019-12-14] MEDS: HEPARIN SODIUM 5000UNIT/ML 1ML VIAL SQ SCH ×2 (06:51→13:00)
[2019-12-14] MEDS: INSULIN GLARGINE 100 UNITS/ML 10 ML VIAL SQ SCH (06:53)
[2019-12-14] MEDS: INSULIN HUMULIN R 100 UNIT/ML 3ML SQ SCH ×2 (06:53→11:30)
[2019-12-14 08:00] VITALS: BP 146/96; PULSE 89; RESP 18; TEMP 97.4
--- NOTE | 2019-12-14 09:00 | NUR ---
ASSESSMENT ENCOUNTERED PT AMBULATING IN ROOM, A&OX3, CALM COOPERATIVE AND DOES NOT APPEAR TO BE IN ANY DISTRESS NOR ANY NEURO DEFICITS PRESENT. PT DENIES PAIN, SOB, NAUSEA, GAIT STEADY AND STRONG WITH STAND BY ASSIST. PERMACATH TO [facility], SITE DRY AND INTACT. CALL LIGHT WITHIN REACH. PT PENDING HEMODIALYSIS.
--- NOTE | 2019-12-14 10:52 | NUR ---
fred note spoke to raul from [facility] main office [phone] op9and states pt is accepted [facility] [place]. MWF schedule at 6pm. starting on tuesday at 12/17/2019. updated pt on above information, and pt is in agreement, and states will be there tuesday, faxed information on approval form to leonid holland nurse and updated on approval MWF at [facility] in [place]. states that he will forward information that was faxed to pt. call also made to mildred at [facility] local office [phone] and states that she will verify approval and requested i call her back to confirm later today.
[2019-12-14 11:30] VITALS: BP 120/99; PULSE 100; RESP 18; TEMP 97.4
--- NOTE | 2019-12-14 15:03 | NUR ---
CM NOTE CALL RECEIVED FROM MOSHE AT [facility] [place] [phone]. AND STATES HE SPOKE TO [facility], AND PT IS ON THEIR SCHEDULE FOR Tuesday12/17/2019 AT 6PM AND THEY WILL CALL PT AND F/U WITH HIM. OK FROM THEIR STANDPOINT TO DISCHARGE PT AND FOLLOWUP AT THEIR DIALYSIS CENTER ON TUESDAY.
--- NOTE | 2019-12-14 18:39 | NUR ---
DISCHARGE INSTRUCTIONS GIVEN, PIV REMOVED AND INTACT, DISCHARGED HOME TO FAMILY VEHICLE VIA WHEELCHAIR.
== END 2019-12-14 17:15 | disposition home or self-care (01) | DRG 137 ==
LOC: EDH 17:09 → EDHIP 17:10 → 4AH 12-05 09:26
PROVIDERS: ADMIT Internal Medicine; ATTEND Internal Medicine
PROC: 02H633Z Insertion of Infusion Device into Right Atrium, Percutaneous Approach (ICD-10-PCS; principal; 2019-12-05)
PROC: B548ZZA Ultrasonography of Superior Vena Cava, Guidance (ICD-10-PCS; 2019-12-05)
PROC: 5A1D70Z Performance of Urinary Filtration, Intermittent, Less than 6 Hours Per Day (ICD-10-PCS; 2019-12-05)
PROC: 02PAX3Z Removal of Infusion Device from Heart, External Approach (ICD-10-PCS; 2019-12-05)
PROC: 5A1D70Z Performance of Urinary Filtration, Intermittent, Less than 6 Hours Per Day (ICD-10-PCS; 2019-12-06)
PROC: 5A1D70Z Performance of Urinary Filtration, Intermittent, Less than 6 Hours Per Day (ICD-10-PCS; 2019-12-07)
PROC: 5A1D70Z Performance of Urinary Filtration, Intermittent, Less than 6 Hours Per Day (ICD-10-PCS; 2019-12-10)
PROC: 5A1D70Z Performance of Urinary Filtration, Intermittent, Less than 6 Hours Per Day (ICD-10-PCS; 2019-12-12)
PROC: 5A1D70Z Performance of Urinary Filtration, Intermittent, Less than 6 Hours Per Day (ICD-10-PCS; 2019-12-14)
DX: U07.1 COVID-19 (principal); I12.0 Hypertensive chronic kidney disease with stage 5 chronic kidney disease or end stage renal disease; E87.2 Acidosis; D63.1 Anemia in chronic kidney disease; E11.22 Type 2 diabetes mellitus with diabetic chronic kidney disease; N18.6 End stage renal disease; J12.89 Other viral pneumonia; E87.6 Hypokalemia; E87.70 Fluid overload, unspecified; F17.200 Nicotine dependence, unspecified, uncomplicated; J44.0 Chronic obstructive pulmonary disease with (acute) lower respiratory infection; E78.5 Hyperlipidemia, unspecified; E11.51 Type 2 diabetes mellitus with diabetic peripheral angiopathy without gangrene; Z91.19 Patient's noncompliance with other medical treatment and regimen; Z91.15 Patient's noncompliance with renal dialysis; Z82.49 Family history of ischemic heart disease and other diseases of the circulatory system

== ENCOUNTER 2020-01-02 09:42 | Emergency (ER) | payer MEDICAID ==
[~2020-01-02 09:42] MED LIST changes: +AMLO2.5T4 PO; +CARV12.511 PO; -DOXA2TAB2 PO; +FERR-82 PO; -FLUC100T8 PO; -FOLI1TAB85 PO; -INSLAN SQ; -LINA5TAB PO; +METH4TAB3 PO; -REGADENOSON 0.4 MG/5 ML PF SYG IVP SCH; -TAMS-1 PO
[2020-01-02 10:46] LABS: BASOPHILS % (AUTO) 0.3 % (0.0-5.0); EOSINOPHILS % (AUTO) 6.3 % (0.0-8.0); HEMATOCRIT 26.8 % (42-54); LYMPHOCYTES % (AUTO) 26.3 % (21.0-51.0); MEAN CORPUSCULAR HEMOGLOBIN 29.6 pg (27.0-33.0); MEAN CORPUSCULAR HGB CONC 31.3 g/dL (32.0-36.0); MEAN CORPUSCULAR VOLUME 94.4 fL (79-99); NEUTROPHILS % (AUTO) 52.2 % (40.0-77.0); PLATELET COUNT (AUTO) 287 K/uL (130-400); RED BLOOD CELL COUNT(AUTO) 2.84 MIL/uL (4.50-6.20); RED CELL DISTRIBUTION WIDTH 14.7 % (11.0-15.5); WHITE BLOOD COUNT (AUTO) 3.4 K/uL (4.8-10.8)
[2020-01-02 10:55] LABS: CREATININE 5.6 mg/dL (0.5-1.5); POTASSIUM 5.3 mmol/L (3.5-5.1)
[2020-01-02 10:58] LABS: INR 0.92 (0.85-1.15); PARTIAL THROMBOPLASTIN TIME 25.7 SEC (26.3-35.5)
[2020-01-02 11:00] LABS: BILIRUBIN,TOTAL 0.3 mg/dL (0.2-1.0); TOTAL PROTEIN, SERUM 7.5 g/dL (6.0-8.3)
[2020-01-02] MEDS ORDERED: LIDOCAINE HCL 1% MDV 50ML VIAL ONE (12:47)
== END 2020-01-02 14:33 | disposition home or self-care (01) ==
LOC: EDH 09:42
DX: T82.49XA Other complication of vascular dialysis catheter, initial encounter (principal); I12.0 Hypertensive chronic kidney disease with stage 5 chronic kidney disease or end stage renal disease; E11.22 Type 2 diabetes mellitus with diabetic chronic kidney disease; N18.6 End stage renal disease; Z99.2 Dependence on renal dialysis; Z87.891 Personal history of nicotine dependence; Z86.19 Personal history of other infectious and parasitic diseases
CPT/HCPCS: 36415; 36558; 77001; 80053; 85025; 85610; 85730; 99285; C1750; C1894; J1644 ×2; J3490

== ENCOUNTER 2020-02-12 02:01 | Inpatient (IN) | payer MEDICAID ==
[~2020-02-12] VITALS: Ht 175.3 cm; Wt 69.4 kg
[2020-02-12 02:38] LABS: APPEARANCE,URINE Clear (CLEAR); BILIRUBIN,URINE Negative (NEGATIVE); COLOR,URINE Yellow (YELLOW); GLUCOSE, URINE (UA) >=1000 mg/dL (NEGATIVE); KETONES,URINE Negative (NEGATIVE); LEUKOCYTE ESTERASE ,URINE Negative (NEGATIVE); NITRATE,URINE Negative (NEGATIVE); OCCULT BLOOD,URINE Small (NEGATIVE); PH,URINE 6.5 (5.0-8.0); PROTEIN,URINE POS 2+ mg/dL (NEGATIVE); UROBILINOGEN,URINE 0.2 mg/dL (0.2-1.0)
[2020-02-12 02:39] LABS: BASOPHILS % (AUTO) 0.7 % (0.0-5.0); EOSINOPHILS % (AUTO) 3.2 % (0.0-8.0); HEMATOCRIT 32.9 % (42-54); LYMPHOCYTES % (AUTO) 29.5 % (21.0-51.0); MEAN CORPUSCULAR HEMOGLOBIN 28.5 pg (27.0-33.0); MEAN CORPUSCULAR VOLUME 83.7 fL (79-99); MONOCYTES % (AUTO) 11.8 % (3.0-13.0); NEUTROPHILS % (AUTO) 54.6 % (40.0-77.0); PLATELET COUNT (AUTO) 176 K/uL (130-400); RED BLOOD CELL COUNT(AUTO) 3.93 MIL/uL (4.50-6.20); RED CELL DISTRIBUTION WIDTH 15.2 % (11.0-15.5); WHITE BLOOD COUNT (AUTO) 4.4 K/uL (4.8-10.8)
[2020-02-12 02:47] LABS: AMPHET/METH SCREEN,URINE NEGATIVE (NEGATIVE); BARBITURATE SCREEN, URINE NEGATIVE (NEGATIVE); BENZODIAZEPINES SCREEN,URINE NEGATIVE (NEGATIVE); CANNABINOID SCREEN,URINE NEGATIVE (NEGATIVE); COCAINE SCREEN,URINE NEGATIVE (NEGATIVE); OPIATE SCREEN,URINE NEGATIVE (NEGATIVE); PHENCYCLIDINE SCREEN,URINE NEGATIVE (NEGATIVE)
[2020-02-12 02:50] LABS: BACTERIA,URINE Rare /HPF (None Seen)
[2020-02-12 02:54] LABS: ALANINE AMINOTRANSFERASE 14 U/L (12-78); ALBUMIN 3.4 g/dL (3.5-5.0); ALCOHOL, BLOOD < 3 mg/dL (0-10); ASPARTATE AMINOTRANSFERASE 11 U/L (10-37); BILIRUBIN,TOTAL 0.3 mg/dL (0.2-1.0); CARBON DIOXIDE 21 mmol/L (21-32); CREATINE KINASE, TOTAL 45 U/L (21-232); GLOMERULAR FILTR. RATE CALC 9 mL/min (>60); POTASSIUM 3.2 mmol/L (3.5-5.1); SODIUM SERUM 118 mmol/L (136-145); TOTAL PROTEIN, SERUM 6.9 g/dL (6.0-8.3); UREA NITROGEN, BLOOD 31 mg/dL (7-18)
[2020-02-12 03:02] LABS: ABG HCO3 19.4 mmol/L (21.0-28.0); ABG OXYGEN SATURATION 66.7 % (95.0-99.0); ABG PCO2 47 mmHg (35-48)
[2020-02-12 03:12] LABS: CHLORIDE 85 mmol/L (101-111); GLUCOSE,RANDOM 1074 mg/dL (70-105)
[2020-02-12] MEDS ORDERED: SODIUM CHLORIDE 0.9% 100 ML IV ONE (03:27)
[2020-02-12] MEDS ORDERED: INSULIN HUMULIN R 100 UNIT/ML 3ML ONE (03:27)
[2020-02-12] MEDS ORDERED: DEXTROSE 5 %-0.45 % NACL 1,000 ML IV PRN (03:29)
[2020-02-12] MEDS ORDERED: SODIUM CHLORIDE 0.9% 1000ML 1,000 ML IV ONE (03:29)
[2020-02-12] MEDS ORDERED: SODIUM CHLORIDE 0.9% 1000ML 1,000 ML IV SCH (03:29)
[2020-02-12] MEDS ORDERED: ONDANSETRON HCL 4 MG/2 ML VIAL IV PRN (03:30)
[2020-02-12] MEDS ORDERED: ACETAMINOPHEN 325 MG TAB PO PRN (03:30)
[2020-02-12] MEDS ORDERED: INSULIN REGULAR, HUMAN 3ML 100 UNIT in SODIUM CHLORIDE 0.9% 99 ML IV PRN ×2 (03:45)
[2020-02-12] MEDS ORDERED: LORAZEPAM 2 MG/ML 1 ML VIAL ONE (05:38)
[2020-02-12 05:44] LABS: CREATININE 7.1 mg/dL (0.5-1.5); POTASSIUM 3.3 mmol/L (3.5-5.1)
[2020-02-12 07:44] LABS: ABG BASE EXCESS -11.6 mmol/L (-2.0-3.0); ABG HCO3 16.8 mmol/L (21.0-28.0); ABG OXYGEN SATURATION 99.6 % (95.0-99.0); ABG PCO2 47 mmHg (35-48)
[2020-02-12] MEDS ORDERED: FENTANYL 2500MCG+NS 250ML 250 ML IV ONE (07:46)
[2020-02-12] MEDS ORDERED: NOREPINEPHRINE 4MG/NS 250ML 250 ML IV ONE (08:23)
[2020-02-12] MEDS ORDERED: ROCURONIUM BROMIDE 10MG/1ML 5ML VL IV ONE (09:00)
[2020-02-12 10:22] LABS: ABG BASE EXCESS -7.7 mmol/L (-2.0-3.0); ABG HCO3 15.5 mmol/L (21.0-28.0); ABG OXYGEN SATURATION 99.1 % (95.0-99.0); ABG PCO2 27 mmHg (35-48)
[2020-02-12] MEDS ORDERED: VANCOMYCIN 1.5 GM in SODIUM CHLORIDE 0.9% 250 ML IV SCH (12:00)
[2020-02-12] MEDS ORDERED: VANCOMYCIN PROTOCOL PER PHARMACY IV SCH (12:15)
[2020-02-12] MEDS: POTASSIUM CHLORIDE 20MEQ/100ML 100 ML IV PRN (13:33)
[2020-02-12] MEDS: PANTOPRAZOLE 40 MG/VIAL IVP SCH (13:35)
[2020-02-12 13:39] LABS: CREATININE 7.1 mg/dL (0.5-1.5); PHOSPHORUS 2.4 mg/dL (2.5-4.9)
[2020-02-12 13:44] LABS: POTASSIUM 2.7 mmol/L (3.5-5.1)
[2020-02-12] MEDS ORDERED: MIDAZOLAM 100MG-0.9% NS 100ML 100 ML IV ONE (14:23)
[2020-02-12 15:30] VITALS: BP 151/90
[2020-02-12] MEDS: THIAMINE HCL 100 MG/ML 2ML VIAL IVP SCH (16:55)
[2020-02-12] MEDS: ZOSYN 3.375GM+NS 50ML 50 ML IV SCH ×2 (16:55→23:35)
[2020-02-12] MEDS: ENOXAPARIN SODIUM 30 MG/0.3 ML SQ SCH (16:56)
--- NOTE | 2020-02-12 17:23 | NUR ---
AMARILIS NOTE/IA UNABLE TO MEET WITH PATIENT IN ROOM. NEXT OF KIN CALLED, TAWANNA JOSE. PER DAUGHTER, PATIENT LIVES ALONE, IS INDEPENDENT WITH ADLS, HAS USE OF DIALYSIS BUT UNSURE OF COMPANY NAME BUT ATTENDS TTS, NO USE OF DME, AND FEELS SAFE FOR PATIENT TO RETURN HOME. ADDED NUMBER TO CALL GIVEN: GIDEON GRANADOS, SPOUSE, . Addendum: 02/12/20 at 1726 by PATRICE MELARA RN CM Amended: Links added.
[2020-02-12] MEDS: INSULIN HUMULIN R 100 UNIT/ML 3ML SQ SCH ×2 (18:00→23:34)
--- NOTE | 2020-02-12 18:42 | NUR ---
ASSESSMENT PT WAS EXTUBATED AT 1810 AND CURRENTLY ON 4L OF O2 VIA NASAL CANNULA WITH SATS AT 1005. FENTANYL, VERSED, AND INSULIN HAVE ALL BEEN STOPPED PER PROVIDER ORDER. PT ON LEVOPHED TITRATING NEED TO MEET MAP OF 60-65. DR JAMSE ASSESSED PT AT BEDSIDE EARLIER AND DECIDED TO HOLD DIALYSIS FOR NOW AND REASSESS FOR POSSIBILITY OF DIALYSIS ON 02/13/2020. WEAK HX OBTAINED FROM DAUGHTER. LOADING DOSE OF VANC AND ZOSYN ADMINISTERED. LABS ORDERED. INSTRUCTED TO ASSESS POTASSIUM LEVEL WITH NEXT BMP PRIOR TO GIVING REPLACEMENT IF NEEDED.
[2020-02-12 19:46] LABS: CREATININE 6.9 mg/dL (0.5-1.5); POTASSIUM 3.6 mmol/L (3.5-5.1)
[2020-02-12 20:41] VITALS: BP 109/62
[2020-02-12 21:38] VITALS: BP 81/55
[2020-02-12 22:29] VITALS: BP 117/74
[2020-02-12 23:45] VITALS: BP 113/66
[2020-02-13] VITALS (24 sets, daily range): BP systolic 91–166; BP diastolic 46–86
--- NOTE | 2020-02-13 01:23 | NUR ---
Patient made multiple attempts to get out of bed. Patient was taking off ECG leads, pulse ox and blood pressure cuff. MD Pean called. MD gave verbal order for Precedex.
[2020-02-13] MEDS ORDERED: DEXMEDETOMIDINE HCL 200 MCG/2 ML VIAL IV ONE ×4 (01:33→22:38)
[2020-02-13 03:49] LABS: BASOPHILS % (AUTO) 0.3 % (0.0-5.0); EOSINOPHILS % (AUTO) 0.7 % (0.0-8.0); HEMATOCRIT 33.5 % (42-54); LYMPHOCYTES % (AUTO) 10.7 % (21.0-51.0); MEAN CORPUSCULAR HEMOGLOBIN 28.4 pg (27.0-33.0); MEAN CORPUSCULAR VOLUME 83.3 fL (79-99); MONOCYTES % (AUTO) 8.9 % (3.0-13.0); NEUTROPHILS % (AUTO) 79.2 % (40.0-77.0); PLATELET COUNT (AUTO) 193 K/uL (130-400); RED BLOOD CELL COUNT(AUTO) 4.02 MIL/uL (4.50-6.20); WHITE BLOOD COUNT (AUTO) 8.6 K/uL (4.8-10.8)
[2020-02-13] MEDS ORDERED: SODIUM CHLORIDE 0.9% 100 ML IV ONE (03:50)
[2020-02-13 04:05] LABS: BILIRUBIN,TOTAL 0.4 mg/dL (0.2-1.0); CREATININE 7.3 mg/dL (0.5-1.5); MAGNESIUM 1.9 mg/dL (1.80-2.40); PHOSPHORUS 2.7 mg/dL (2.5-4.9); TOTAL PROTEIN, SERUM 6.6 g/dL (6.0-8.3); URIC ACID 9.5 mg/dL (2.6-7.2)
[2020-02-13 04:12] LABS: POTASSIUM 2.4 mmol/L (3.5-5.1)
[2020-02-13] MEDS: INSULIN HUMULIN R 100 UNIT/ML 3ML SQ SCH ×3 (05:56→18:00)
[2020-02-13] MEDS: POTASSIUM CHLORIDE 20MEQ/100ML 100 ML IV PRN ×2 (07:51→15:44)
[2020-02-13] MEDS: THIAMINE HCL 100 MG/ML 2ML VIAL IVP SCH (07:51)
[2020-02-13] MEDS: PANTOPRAZOLE 40 MG/VIAL IVP SCH (07:52)
[2020-02-13] MEDS: ENOXAPARIN SODIUM 30 MG/0.3 ML SQ SCH (07:52)
[2020-02-13] MEDS: DEXMEDETOMIDINE HCL 400 MCG in SODIUM CHLORIDE 0.9% 100 ML IV SCH ×3 (11:44→22:57)
[2020-02-13] MEDS: ZOSYN 3.375GM+NS 50ML 50 ML IV SCH ×2 (11:49→23:55)
[2020-02-13] MEDS ORDERED: INSULIN GLARGINE 100 UNITS/ML 10 ML VIAL SQ ONE ×2 (15:00→17:00)
[2020-02-13] MEDS: VANCOMYCIN 1GM+NS 250ML 250 ML IV SCH (15:20)
[2020-02-13] MEDS: LIDOCAINE HCL-MPF 1% 2ML VIAL IV PRN (15:44)
[2020-02-13] MEDS ORDERED: SODIUM CHLORIDE 0.9% 1000ML 1,000 ML IV PRN (17:30)
[2020-02-13] MEDS ORDERED: HEPARIN SODIUM 5000UNIT/ML 1ML VIAL IJ PRN ×2 (17:30)
[2020-02-13] MEDS ORDERED: NITROGLYCERIN 0.4 MG SL TAB SL PRN (17:30)
[2020-02-13] MEDS ORDERED: ACETAMINOPHEN 325 MG TAB PO PRN (17:30)
[2020-02-13] MEDS ORDERED: 0.9% SODIUM CHLORIDE 1000 ML IV BAG IV PRN (17:30)
[2020-02-13] MEDS ORDERED: LIDOCAINE HCL-MPF 1% 2ML VIAL IJ PRN (17:30)
[2020-02-13] MEDS ORDERED: ALBUMIN (HUMAN) 5% 250 ML IV ONE (19:06)
[2020-02-13] MEDS: INSULIN GLARGINE 100 UNITS/ML 10 ML VIAL SQ SCH (21:49)
[2020-02-14] VITALS (56 sets, daily range): BP systolic 73–190; BP diastolic 36–98
[2020-02-14] MEDS: DEXMEDETOMIDINE HCL 400 MCG in SODIUM CHLORIDE 0.9% 100 ML IV SCH ×2 (03:00→09:25)
[2020-02-14 03:25] LABS: BASOPHILS % (AUTO) 0.6 % (0.0-5.0); EOSINOPHILS % (AUTO) 1.6 % (0.0-8.0); HEMATOCRIT 32.8 % (42-54); LYMPHOCYTES % (AUTO) 15.2 % (21.0-51.0); MEAN CORPUSCULAR HEMOGLOBIN 28.5 pg (27.0-33.0); MEAN CORPUSCULAR HGB CONC 34.8 g/dL (32.0-36.0); MONOCYTES % (AUTO) 6.5 % (3.0-13.0); NEUTROPHILS % (AUTO) 75.8 % (40.0-77.0); PLATELET COUNT (AUTO) 189 K/uL (130-400); WHITE BLOOD COUNT (AUTO) 7.1 K/uL (4.8-10.8)
[2020-02-14 03:36] LABS: CREATININE 4.5 mg/dL (0.5-1.5); POTASSIUM 3.1 mmol/L (3.5-5.1)
[2020-02-14 03:40] LABS: BILIRUBIN,TOTAL 0.6 mg/dL (0.2-1.0); MAGNESIUM 2.1 mg/dL (1.80-2.40); PHOSPHORUS 3.3 mg/dL (2.5-4.9); TOTAL PROTEIN, SERUM 6.7 g/dL (6.0-8.3); URIC ACID 5.2 mg/dL (2.6-7.2)
[2020-02-14 03:43] LABS: HEMOGLOBIN A1C 13.6 % (4.0-6.0)
[2020-02-14] MEDS ORDERED: PHARMACY COMMUNICATION MISC SCH ×2 (05:00→17:45)
[2020-02-14] MEDS: POTASSIUM CHLORIDE 10MEQ/100ML 100 ML IV PRN ×2 (05:45→11:42)
[2020-02-14] MEDS ORDERED: INSULIN GLARGINE 100 UNITS/ML 10 ML VIAL SQ ONE (06:30)
[2020-02-14] MEDS: INSULIN LISPRO 100 UNIT/ML 3ML SQ SCH ×6 (07:30→16:58)
[2020-02-14] MEDS ORDERED: INSULIN LISPRO 100 UNIT/ML 3ML SQ SCH ×3 (07:30→08:00)
[2020-02-14] MEDS: LIDOCAINE HCL-MPF 1% 2ML VIAL IV PRN (08:05)
[2020-02-14] MEDS ORDERED: HUMALOG PO SS1 SQ PRN (09:15)
[2020-02-14] MEDS: THIAMINE HCL 100 MG/ML 2ML VIAL IVP SCH (09:25)
--- NOTE | 2020-02-14 09:57 | NUR ---
AT THIS TIME PT IS COMBATIVE AND MAKES VIGOROUS MOVEMENTS TO AVOID RN TO ADMINISTER IV MEDICATIONS. ON PRECEDEX MAX. DOSE.
[2020-02-14] MEDS: ENOXAPARIN SODIUM 30 MG/0.3 ML SQ SCH (10:50)
--- NOTE | 2020-02-14 12:00 | NUR ---
[facility] CALLED TO INFORM PT PCR IS POSITIVE FOR COVID 19. PT WILL BE TRANSFERRED TO COVID ICU.
[2020-02-14] MEDS ORDERED: SODIUM CHLORIDE 0.9% 500ML 500 ML IV SCH (13:30)
[2020-02-14] MEDS ORDERED: HALOPERIDOL LACTATE 5 MG/ML VIAL IV PRN (13:30)
[2020-02-14] MEDS: LORAZEPAM 2 MG/ML 1 ML VIAL IVP PRN ×2 (14:12→20:10)
--- NOTE | 2020-02-14 14:56 | NUR ---
PER DR JAMES, DO NOT REMOVE HD CATH AND GET BLOOD CULTURE FROM HD CATH. PERFORM HD TODAY. WILL REEVALUATE TOMORROW FOR HD SCHEDULE.
[2020-02-14] MEDS: VANCOMYCIN 1GM+NS 250ML 250 ML IV SCH (15:00)
[2020-02-14] MEDS ORDERED: ALBUMIN (HUMAN) 25% 100 ML IV ONE (15:45)
--- NOTE | 2020-02-14 16:16 | NUR ---
RD NOTIFICATION Pt admitted with AMS, Hyperglycemia. Pt no longer intubated as per RN. Tube Feeding not needed. Pt NPO d/t elevated blood sugars. Positive COVID. Pt with ESRD on HD. monitored nutrition labs: BUN 22, Cr 4.5, BG 200, A1C 13.6%, Ca 7.9, Alb 3.0, Na 135. Recommend Low CHO, High Protein 30GM CC diet order advancement when medically feasible. Recommend Renal Dialysis Diet modifier with Recommend daily MVI supplementation Recommend 500mg Vitamin C BID, 220mg Zinc QD. RD to continue to monitor. Please notify as additional nutrition concerns arise. Thank you.
--- NOTE | 2020-02-14 16:58 | NUR ---
PT BLOOD SUGAR DROPPED TO 61. HALF AMP OF D50 IVP GIVEN AT THIS TIME. PHARMACY NOTIFIED TO ADD HYPOGLICEMIA PROTOCOL TO eMAR. PT IN SLIDING SCALE.
[2020-02-14] MEDS ORDERED: GLUCAGON 1MG KIT 1 MG ML IM PRN (17:00)
[2020-02-14] MEDS ORDERED: DEXTROSE 50%-WATER 50 ML DISP.SYRIN IV PRN (17:00)
[2020-02-14] MEDS: DEXTROSE 50%-WATER 50 ML DISP.SYRIN IV ONE ×2 (17:26→17:28)
[2020-02-14] MEDS: ZOSYN 3.375GM+NS 50ML 50 ML IV SCH (20:09)
[2020-02-14] MEDS: INSULIN GLARGINE 100 UNITS/ML 10 ML VIAL SQ SCH (21:00)
[2020-02-15] VITALS (23 sets, daily range): BP systolic 83–156; BP diastolic 43–91
[2020-02-15 03:43] LABS: BASOPHILS % (AUTO) 0.4 % (0.0-5.0); EOSINOPHILS % (AUTO) 1.4 % (0.0-8.0); HEMATOCRIT 29.6 % (42-54); LYMPHOCYTES % (AUTO) 23.5 % (21.0-51.0); MEAN CORPUSCULAR HEMOGLOBIN 28.4 pg (27.0-33.0); MEAN CORPUSCULAR HGB CONC 34.1 g/dL (32.0-36.0); MEAN CORPUSCULAR VOLUME 83.1 fL (79-99); MONOCYTES % (AUTO) 10.9 % (3.0-13.0); NEUTROPHILS % (AUTO) 63.5 % (40.0-77.0); PLATELET COUNT (AUTO) 201 K/uL (130-400); RED BLOOD CELL COUNT(AUTO) 3.56 MIL/uL (4.50-6.20)
[2020-02-15 03:58] LABS: ALBUMIN 3.2 g/dL (3.5-5.0); BILIRUBIN,TOTAL 0.6 mg/dL (0.2-1.0); CREATININE 3.7 mg/dL (0.5-1.5); MAGNESIUM 1.6 mg/dL (1.80-2.40); PHOSPHORUS 2.2 mg/dL (2.5-4.9); TOTAL PROTEIN, SERUM 6.6 g/dL (6.0-8.3); URIC ACID 2.9 mg/dL (2.6-7.2)
[2020-02-15] MEDS: POTASSIUM CHLORIDE 20MEQ/100ML 100 ML IV PRN (04:30)
[2020-02-15] MEDS: LIDOCAINE HCL-MPF 1% 2ML VIAL IV PRN (04:35)
[2020-02-15 07:16] LABS: HEPATITIS Bs ANTIGEN SCREEN P Negative (Negative)
[2020-02-15] MEDS: ZOSYN 3.375GM+NS 50ML 50 ML IV SCH ×2 (10:10→20:36)
[2020-02-15] MEDS: ENOXAPARIN SODIUM 30 MG/0.3 ML SQ SCH (10:16)
[2020-02-15] MEDS: THIAMINE HCL 100 MG/ML 2ML VIAL IVP SCH (10:16)
[2020-02-15] MEDS: INSULIN LISPRO 100 UNIT/ML 3ML SQ SCH ×3 (10:18→17:01)
[2020-02-15] MEDS: VANCOMYCIN 1GM+NS 250ML 250 ML IV SCH (15:39)
--- NOTE | 2020-02-15 18:03 | NUR ---
Pt transferred to PCU/Tele via wheelchair in NAD. Placed on bed with 2 person assist, oriented to room. Given blankets for comfort, side rails up x4, bed in lowest position, call light in reach. Pt given sitting up to eat dinner. Will continue to monitor.
--- NOTE | 2020-02-15 18:04 | NUR ---
Anne Marie Yang had an uneventful day. He is hemodynamically stable, denies pain, diarrhea continues with 6 loose/green bowel movements from 0700 to 1600. Legal spouse Sharyn Jones was given a phone update of status and plan of care. Patient was transferred from ICU to floor bed for continued care.
[2020-02-15] MEDS: INSULIN GLARGINE 100 UNITS/ML 10 ML VIAL SQ SCH (21:49)
[2020-02-16 03:00] VITALS: BP 136/78
[2020-02-16 05:30] LABS: BASOPHILS % (AUTO) 0.9 % (0.0-5.0); EOSINOPHILS % (AUTO) 3.4 % (0.0-8.0); HEMATOCRIT 33.2 % (42-54); LYMPHOCYTES % (AUTO) 30.3 % (21.0-51.0); MEAN CORPUSCULAR HEMOGLOBIN 27.7 pg (27.0-33.0); MEAN CORPUSCULAR HGB CONC 31.9 g/dL (32.0-36.0); MEAN CORPUSCULAR VOLUME 86.7 fL (79-99); PLATELET COUNT (AUTO) 228 K/uL (130-400); RED BLOOD CELL COUNT(AUTO) 3.83 MIL/uL (4.50-6.20); RED CELL DISTRIBUTION WIDTH 15.3 % (11.0-15.5); WHITE BLOOD COUNT (AUTO) 5.5 K/uL (4.8-10.8)
[2020-02-16 05:41] LABS: POTASSIUM 3.4 mmol/L (3.5-5.1)
[2020-02-16 05:50] LABS: MAGNESIUM 2.1 mg/dL (1.80-2.40)
[2020-02-16] MEDS: INSULIN LISPRO 100 UNIT/ML 3ML SQ SCH ×8 (06:07→21:00)
[2020-02-16 06:55] LABS: ALBUMIN 3.2 g/dL (3.5-5.0); BILIRUBIN,TOTAL 0.4 mg/dL (0.2-1.0); URIC ACID 5.6 mg/dL (2.6-7.2)
[2020-02-16] MEDS: ZOSYN 3.375GM+NS 50ML 50 ML IV SCH ×2 (09:20→21:58)
[2020-02-16] MEDS: THIAMINE HCL 100 MG/ML 2ML VIAL IVP SCH (09:20)
[2020-02-16] MEDS: ENOXAPARIN SODIUM 30 MG/0.3 ML SQ SCH (09:22)
[2020-02-16 09:41] VITALS: BP 123/83
[2020-02-16 12:51] VITALS: BP 113/75
--- NOTE | 2020-02-16 13:00 | NUR ---
HD Pt currently receiving bedside hemodialysis, will medicate per MAR when treatment complete.
--- NOTE | 2020-02-16 14:45 | NUR ---
HD completed HD completed at 1415, 1.5 L dialyzed from pt. Tolerated well. VSS, RR even unlabored, airway intact. Pt lying supine in bed in NAD. Pt given lunch and administered noon medications. Will continue to monitor for any acute changes.
[2020-02-16 17:23] VITALS: BP 98/65
[2020-02-16 19:00] VITALS: BP 111/76
[2020-02-16] MEDS: INSULIN GLARGINE 100 UNITS/ML 10 ML VIAL SQ SCH (22:02)
[2020-02-16 23:00] VITALS: BP 119/70
[2020-02-17 03:00] VITALS: BP 95/64
[2020-02-17 04:42] LABS: BASOPHILS % (AUTO) 0.7 % (0.0-5.0); EOSINOPHILS % (AUTO) 3.8 % (0.0-8.0); HEMATOCRIT 33.6 % (42-54); LYMPHOCYTES % (AUTO) 33.2 % (21.0-51.0); MEAN CORPUSCULAR HEMOGLOBIN 27.8 pg (27.0-33.0); MEAN CORPUSCULAR HGB CONC 32.1 g/dL (32.0-36.0); MEAN CORPUSCULAR VOLUME 86.4 fL (79-99); MONOCYTES % (AUTO) 11.3 % (3.0-13.0); NEUTROPHILS % (AUTO) 50.7 % (40.0-77.0); PLATELET COUNT (AUTO) 218 K/uL (130-400); RED BLOOD CELL COUNT(AUTO) 3.89 MIL/uL (4.50-6.20); RED CELL DISTRIBUTION WIDTH 14.9 % (11.0-15.5); WHITE BLOOD COUNT (AUTO) 5.8 K/uL (4.8-10.8)
[2020-02-17 04:54] LABS: CREATININE 4.9 mg/dL (0.5-1.5); POTASSIUM 3.1 mmol/L (3.5-5.1)
[2020-02-17 04:58] LABS: ALBUMIN 3.3 g/dL (3.5-5.0); BILIRUBIN,TOTAL 0.4 mg/dL (0.2-1.0); MAGNESIUM 2.6 mg/dL (1.80-2.40); PHOSPHORUS 4.7 mg/dL (2.5-4.9); TOTAL PROTEIN, SERUM 7.3 g/dL (6.0-8.3); URIC ACID 3.3 mg/dL (2.6-7.2)
[2020-02-17] MEDS: INSULIN LISPRO 100 UNIT/ML 3ML SQ SCH ×4 (07:30→11:22)
[2020-02-17 08:15] VITALS: BP 92/65
[2020-02-17] MEDS: THIAMINE HCL 100 MG/ML 2ML VIAL IVP SCH (08:58)
[2020-02-17] MEDS: ENOXAPARIN SODIUM 30 MG/0.3 ML SQ SCH (08:58)
[2020-02-17] MEDS: POTASSIUM CHLORIDE 10% ELIXIR 20 MEQ/15 ML UDCUP PO PRN ×3 (09:47→09:49)
[2020-02-17] MEDS: ZOSYN 3.375GM+NS 50ML 50 ML IV SCH (10:22)
--- NOTE | 2020-02-17 11:38 | NUR ---
AMA Pt requested to go home AMA. A/O x4, denies pain. Education about importance of follow up with the doctor was given. AMA papers signed. Pt called sister to pick him up. Walked out from the floor.
== END 2020-02-17 11:40 | disposition left against medical advice (07) | DRG 420 ==
LOC: EDH 02:01 → EDHIP 02:02 → DAHIP 09:45 → 2CH 02-14 12:57 → 2AH 02-15 17:59
PROVIDERS: ADMIT Internal Medicine; ATTEND Internal Medicine
PROC: 5A1935Z Respiratory Ventilation, Less than 24 Consecutive Hours (ICD-10-PCS; 2020-02-12)
PROC: 0BH17EZ Insertion of Endotracheal Airway into Trachea, Via Natural or Artificial Opening (ICD-10-PCS; 2020-02-12)
PROC: 5A1D70Z Performance of Urinary Filtration, Intermittent, Less than 6 Hours Per Day (ICD-10-PCS; principal; 2020-02-13)
PROC: 5A1D70Z Performance of Urinary Filtration, Intermittent, Less than 6 Hours Per Day (ICD-10-PCS; 2020-02-14)
PROC: 5A1D70Z Performance of Urinary Filtration, Intermittent, Less than 6 Hours Per Day (ICD-10-PCS; 2020-02-16)
DX: E11.00 Type 2 diabetes mellitus with hyperosmolarity without nonketotic hyperglycemic-hyperosmolar coma (NKHHC) (principal); N18.6 End stage renal disease; D63.1 Anemia in chronic kidney disease; E87.1 Hypo-osmolality and hyponatremia; U07.1 COVID-19; E87.6 Hypokalemia; G93.41 Metabolic encephalopathy; J96.00 Acute respiratory failure, unspecified whether with hypoxia or hypercapnia; N13.6 Pyonephrosis; I12.0 Hypertensive chronic kidney disease with stage 5 chronic kidney disease or end stage renal disease; J12.89 Other viral pneumonia; E11.51 Type 2 diabetes mellitus with diabetic peripheral angiopathy without gangrene; E11.22 Type 2 diabetes mellitus with diabetic chronic kidney disease; E11.649 Type 2 diabetes mellitus with hypoglycemia without coma; B96.89 Other specified bacterial agents as the cause of diseases classified elsewhere; E78.5 Hyperlipidemia, unspecified; F17.200 Nicotine dependence, unspecified, uncomplicated; J44.0 Chronic obstructive pulmonary disease with (acute) lower respiratory infection; Z99.2 Dependence on renal dialysis; Z79.4 Long term (current) use of insulin; Z91.19 Patient's noncompliance with other medical treatment and regimen; Z83.3 Family history of diabetes mellitus
CPT/HCPCS: 31500; 36415; 36600; 70450; 71045; 80048; 80053; 80305; 81001; 82010; 82550; 82803; 82947; 82948; 83036; 83605; 83735; 83930; 84100; 84132; 84145; 84484; 84550; 85025; 86704; 86706; 87040; 87077; 87186; 87340; 87426; 87520; 90935; 93005; 94002; 99291; 99292; C9113; G0378; J1644; J1650; J1815; J2060; J2250; J2543; J3010; J3370; J3411; J3480; J3490; J7030; J7042; J7050; J7070; P9045; P9046; U0003

== ENCOUNTER → 2020-08-21 | Outpatient (CLI) | payer OTHER | END | disposition home or self-care (01) | LOC: RAH 11:07 | PROVIDERS: ATTEND Internal Medicine Cardiovascular Disease | DX: Z13.6 Encounter for screening for cardiovascular disorders (principal); I25.10 Atherosclerotic heart disease of native coronary artery without angina pectoris | CPT/HCPCS: 75571 ==

== ENCOUNTER 2020-10-12 04:54 | Emergency (ER) | payer OTHER, MEDICARE ==
[~2020-10-12 04:54] MED LIST changes: +AEC81 PO; -AMLO2.5T4 PO; +ATOR40TA69 PO; +AURYXIA PO; -CARV12.511 PO; +CARV6.2579 PO; -FERR-82 PO; +FOLI1TAB85 PO; +INSU100V12 SQ; +LEVO50CA4 PO; +LISI-809 PO; -METH4TAB3 PO; +SITA25TA5 PO; +VITAMIN D3 PO
[2020-10-12] MEDS ORDERED: ORPHENADRINE CITRATE 30 MG/ML ML ONE (05:37)
[2020-10-12] MEDS ORDERED: LIDOCAINE 5% TOPICAL PATCH TP ONE (05:38)
== END 2020-10-12 06:09 | disposition home or self-care (01) ==
LOC: EDH 04:54
DX: M62.830 Muscle spasm of back (principal); E11.9 Type 2 diabetes mellitus without complications; I10 Essential (primary) hypertension
CPT/HCPCS: 96372; 99283; J2360

== ENCOUNTER 2023-03-16 20:46 | Emergency (ER) | payer OTHER, MEDICARE ==
[~2023-03-16] VITALS: Ht 167.6 cm; Wt 81.6 kg
[~2023-03-16 20:46] MED LIST changes: -AEC81 PO; +ASPI-1197 PO; +ATOR10TA69 PO; -ATOR40TA69 PO; -AURYXIA PO; +CARV12.511 PO; -CARV6.2579 PO; +CHOL100020 PO; +FURO80TA3 PO; +GABA-529 PO; -INSU100V12 SQ; -LEVO50CA4 PO; -LISI-809 PO; +LISI5TAB21 PO; +TRAZ-185 PO; -VITAMIN D3 PO
[2023-03-16 23:20] LABS: BASOPHILS # (AUTO) 0.03 K/uL (0.00-0.20); BASOPHILS % (AUTO) 0.6 % (0.0-5.0); EOSINOPHILS # (AUTO) 0.24 K/uL (0.00-0.70); EOSINOPHILS % (AUTO) 4.6 % (0.0-8.0); HEMATOCRIT 29.1 % (42-54); IMMATURE GRANULOCYTE ABSOLUTE 0.02 K/uL (0-1); LYMPHOCYTES # (AUTO) 0.5 K/uL (1.0-4.8); LYMPHOCYTES % (AUTO) 9.6 % (21.0-51.0); MEAN CORPUSCULAR HEMOGLOBIN 29.6 pg (27.0-33.0); MEAN CORPUSCULAR HGB CONC 30.9 g/dL (32.0-36.0); MEAN CORPUSCULAR VOLUME 95.7 fL (79-99); MONOCYTES # (AUTO) 0.7 K/uL (0.1-1.0); MONOCYTES % (AUTO) 12.7 % (3.0-13.0); NEUTROPHILS # (AUTO) 3.7 K/uL (1.8-7.7); NEUTROPHILS % (AUTO) 72.1 % (40.0-77.0); PLATELET COUNT (AUTO) 80 K/uL (130-400); RED BLOOD CELL COUNT(AUTO) 3.04 MIL/uL (4.50-6.20); RED CELL DISTRIBUTION WIDTH 18.6 % (11.0-15.5); WHITE BLOOD COUNT (AUTO) 5.2 K/uL (4.8-10.8)
[2023-03-16 23:35] LABS: ALBUMIN 3.2 g/dL (3.5-5.0); BILIRUBIN,TOTAL 0.8 mg/dL (0.2-1.0); CREATININE 6.7 mg/dL (0.5-1.5); POTASSIUM 4.1 mmol/L (3.5-5.1); TOTAL PROTEIN, SERUM 8.1 g/dL (6.0-8.3)
[2023-03-17 00:19] VITALS: BP 109/74; PULSE 86; RESP 18; O2SAT 97
[2023-03-17] MEDS ORDERED: 0.9%NACL 1000ML 1,000 ML IV ONE (03:04)
[2023-03-17] MEDS ORDERED: CEFTRIAXONE 2GM VIAL ONE (03:04)
== END 2023-03-17 04:13 | disposition home or self-care (01) ==
LOC: EDH 20:46
DX: M79.671 Pain in right foot (principal)
CPT/HCPCS: 99284; 80053; 85025; 87070; 87076; 87077 ×3; 87186 ×3; 36415; 73630; J7030; J0696

== ENCOUNTER 2023-06-07 17:19 | Emergency (ER) | payer OTHER, MEDICARE ==
[~2023-06-07] VITALS: Ht 167.6 cm; Wt 74.8 kg
[~2023-06-07 17:19] MED LIST changes: +AMLO-257 PO; -ATOR10TA69 PO; +ATOR40TA69 PO; +CLOP-31 PO; -GABA-529 PO; +METF-445 PO; +ROPI2TAB53 PO
[2023-06-07 18:31] LABS: BASOPHILS # (AUTO) 0.01 K/uL (0.00-0.20); BASOPHILS % (AUTO) 0.3 % (0.0-5.0); EOSINOPHILS % (AUTO) 2.6 % (0.0-8.0); HEMATOCRIT 28.2 % (42-54); IMMATURE GRANULOCYTE ABSOLUTE 0.01 K/uL (0-1); LYMPHOCYTES # (AUTO) 0.6 K/uL (1.0-4.8); LYMPHOCYTES % (AUTO) 15.4 % (21.0-51.0); MEAN CORPUSCULAR HEMOGLOBIN 30.3 pg (27.0-33.0); MEAN CORPUSCULAR HGB CONC 32.3 g/dL (32.0-36.0); MONOCYTES # (AUTO) 0.6 K/uL (0.1-1.0); MONOCYTES % (AUTO) 14.6 % (3.0-13.0); NEUTROPHILS # (AUTO) 2.6 K/uL (1.8-7.7); NEUTROPHILS % (AUTO) 66.8 % (40.0-77.0); PLATELET COUNT (AUTO) 59 K/uL (130-400); RED CELL DISTRIBUTION WIDTH 18.6 % (11.0-15.5); WHITE BLOOD COUNT (AUTO) 3.8 K/uL (4.8-10.8)
[2023-06-07 18:32] LABS: CREATININE 4.3 mg/dL (0.5-1.5)
[2023-06-07 18:37] LABS: ALBUMIN 2.5 g/dL (3.5-5.0); BILIRUBIN,TOTAL 0.8 mg/dL (0.2-1.0); TOTAL PROTEIN, SERUM 6.9 g/dL (6.0-8.3)
[2023-06-08 02:16] LABS: APPEARANCE,URINE CLEAR (CLEAR); BILIRUBIN,URINE NEGATIVE (NEGATIVE); COLOR,URINE LIGHT-YELLOW (YELLOW); GLUCOSE, URINE (UA) NEGATIVE (NEGATIVE); KETONES,URINE NEGATIVE (NEGATIVE); LEUKOCYTE ESTERASE ,URINE 25 Leu/uL (NEGATIVE); NITRATE,URINE NEGATIVE (NEGATIVE); OCCULT BLOOD,URINE NEGATIVE (NEGATIVE); PH,URINE 8.5 (5.0-8.0); PROTEIN,URINE 300 mg/dL (NEGATIVE); UROBILINOGEN,URINE 0.2 mg/dL (0.2-1.0)
[2023-06-08 02:17] LABS: ADD UA MICROSCOPIC YES
[2023-06-08 02:22] LABS: BACTERIA,URINE RARE /HPF (None Seen); MUCUS,URINE RARE LPF (None Seen); SQUAMOUS EPITHELIAL CELL,UR FEW /HPF (0-2)
[2023-06-08] MEDS ORDERED: CEFTRIAXONE 2GM VIAL IVPB ONE (05:30)
[2023-06-08] MEDS ORDERED: CEPH500B PO (05:34)
[2023-06-08 08:01] VITALS: BP 145/89; PULSE 78; RESP 18; O2SAT 98
[2023-06-20] MEDS ORDERED: LOPE-210 PO (15:44)
== END 2023-06-08 08:08 | disposition home or self-care (01) ==
LOC: EDH 17:19
DX: N39.0 Urinary tract infection, site not specified (principal); R60.0 Localized edema; E11.9 Type 2 diabetes mellitus without complications; Z79.02 Long term (current) use of antithrombotics/antiplatelets; Z79.82 Long term (current) use of aspirin; Z79.84 Long term (current) use of oral hypoglycemic drugs; Z79.899 Other long term (current) drug therapy; Z95.1 Presence of aortocoronary bypass graft
CPT/HCPCS: 36415; 80053; 81001; 83690; 85025; 87088; 96365; 96366; J0696

== ENCOUNTER → 2023-06-08 | Outpatient (CLI) | payer OTHER, MEDICARE ==
[~2023-06-08] MED LIST changes: +CEPH500B PO; +LOPE-210 PO
== END | disposition home or self-care (01) ==
LOC: SHCH 11:11
PROVIDERS: ATTEND Student in an Organized Health Care Education/Training Program
DX: I08.2 Rheumatic disorders of both aortic and tricuspid valves (principal); R06.00 Dyspnea, unspecified; E78.5 Hyperlipidemia, unspecified; I25.10 Atherosclerotic heart disease of native coronary artery without angina pectoris; I13.2 Hypertensive heart and chronic kidney disease with heart failure and with stage 5 chronic kidney disease, or end stage renal disease; E11.22 Type 2 diabetes mellitus with diabetic chronic kidney disease; N18.6 End stage renal disease; I50.43 Acute on chronic combined systolic (congestive) and diastolic (congestive) heart failure; E03.9 Hypothyroidism, unspecified; E11.42 Type 2 diabetes mellitus with diabetic polyneuropathy; E11.51 Type 2 diabetes mellitus with diabetic peripheral angiopathy without gangrene; Z95.1 Presence of aortocoronary bypass graft; Z99.2 Dependence on renal dialysis
CPT/HCPCS: 93306; 96365; 96366; J0696